=== PATIENT | male | born 1990 | race Asian ===

== ENCOUNTER → 2021-12-31 | Outpatient (CLI) | payer OTHER | END | disposition home or self-care (01) | LOC: RADMN 16:20 | PROVIDERS: ATTEND Internal Medicine | DX: Z09 Encounter for follow-up examination after completed treatment for conditions other than malignant neoplasm (principal); Z86.73 Personal history of transient ischemic attack (TIA), and cerebral infarction without residual deficits | CPT/HCPCS: 70551 ==

== ENCOUNTER 2022-03-05 21:09 | Inpatient (IN) | payer OTHER ==
[~2022-03-05] VITALS: Ht 167.6 cm; Wt 91.9 kg
[~2022-03-05 21:09] MED LIST: ACET-2247 PO; BISA10SU11 PR; CARV6 PO; CLON1PAT14 TD; CLON1PAT14 TP; DIVA500T53 PO; FAMO20 PO; HYDR50TA36 PO; LISI-894 PO; METO50 PO; QUET100T PO; QUET25TA PO
[2022-03-06 00:56] LABS: ANION GAP 5 mmol/L (8-16); CALCIUM, TOTAL 9.6 mg/dL (8.8-10.5); CARBON DIOXIDE 30 mmol/L (22-29); CHLORIDE 103 mmol/L (98-107); CREATININE 1.07 mg/dL (0.60-1.30); GLUCOSE,RANDOM 96 mg/dL (70-110); SODIUM SERUM 138 mmol/L (136-145); UREA NITROGEN, BLOOD 19 mg/dL (7-18)
[2022-03-06 01:00] LABS: GLOMERULAR FILTR. RATE CALC > 60 mL/min (>60)
[2022-03-06 01:02] LABS: ALANINE AMINOTRANSFERASE 65 U/L (12-78); ALBUMIN 3.8 g/dL (3.4-5.0); ALKALINE PHOSPHATASE 66 U/L (46-116); ASPARTATE AMINOTRANSFERASE 19 U/L (15-37); BILIRUBIN,TOTAL 0.3 mg/dL (0.1-1.0); TOTAL PROTEIN, SERUM 8.2 g/dL (6.4-8.2)
[2022-03-06 01:14] LABS: BASOPHILS % (AUTO) 0.6 % (0.0-2.0); EOSINOPHILS % (AUTO) 1.1 % (1.0-6.0); HEMATOCRIT 42.3 % (41-53); HEMOGLOBIN 13.9 g/dL (13.5-17.5); LYMPHOCYTES % (AUTO) 27.1 % (22.0-44.0); MEAN CORPUSCULAR HEMOGLOBIN 28.8 pg (26.0-34.0); MEAN CORPUSCULAR HGB CONC 32.8 G/dL (31.0-37.0); MEAN CORPUSCULAR VOLUME 88 fL (80-100); MONOCYTES # (AUTO) 0.7 K/uL (0.1-1.0); MONOCYTES % (AUTO) 9.5 % (2.0-9.0); NEUTROPHILS # (AUTO) 4.5 K/uL (1.8-7.7); NEUTROPHILS % (AUTO) 61.7 % (40.0-70.0); PLATELET COUNT (AUTO) 275 K/uL (150-450); RED BLOOD CELL COUNT(AUTO) 4.82 MIL/uL (4.50-5.90); RED CELL DISTRIBUTION WIDTH 15.6 % (11.5-14.5)
[2022-03-06 06:47] LABS: COVID AG,FIA SOURCE NASOPHARYNGEAL
[2022-03-06] MEDS ORDERED: ACETAMINOPHEN 500 MG TABLET PO PRN (07:00)
[2022-03-06] MEDS ORDERED: LORazepam 1 MG TABLET PO PRN (07:00)
[2022-03-06] MEDS ORDERED: CARVEDILOL 6.25 MG TABLET PO ONE (09:00)
[2022-03-06] MEDS ORDERED: FAMOTIDINE 20 MG TABLET PO ONE (09:00)
[2022-03-06] MEDS ORDERED: DIVALPROEX SODIUM 500 MG ER TABLET PO ONE (09:00)
[2022-03-06] MEDS ORDERED: HydrALAZINE HCL 25 MG TABLET PO ONE (09:00)
[2022-03-06] MEDS ORDERED: QUEtiapine FUMARATE 25 MG TABLET PO ONE (09:00)
[2022-03-06] MEDS ORDERED: LORazepam 2 MG/ML VIAL IM ONE ×2 (17:45)
[2022-03-07] MEDS ORDERED: ONDANSETRON HCL 4 MG/2 ML VIAL IVP PRN (16:45)
[2022-03-07] MEDS ORDERED: MORPHINE SULFATE 2 MG/ML SYRINGE IVP PRN (16:45)
[2022-03-07] MEDS ORDERED: BISACODYL 10 MG RECTAL RECTAL SUPPOSITORY PR PRN (16:45)
[2022-03-07 17:36] LABS: AMPHET/METH SCREEN,URINE NEGATIVE (NEGATIVE); BARBITURATE SCREEN, URINE NEGATIVE (NEGATIVE); BENZODIAZEPINES SCREEN,URINE NEGATIVE (NEGATIVE); CANNABINOID SCREEN,URINE NEGATIVE (NEGATIVE); COCAINE SCREEN,URINE NEGATIVE (NEGATIVE); METHADONE SCREEN, URINE NEGATIVE (NEGATIVE); OPIATE SCREEN,URINE NEGATIVE (NEGATIVE); PHENCYCLIDINE SCREEN,URINE NEGATIVE (NEGATIVE)
[2022-03-07] MEDS ORDERED: LORazepam 2 MG/ML VIAL IM ONE (18:30)
[2022-03-07] MEDS ORDERED: HALOPERIDOL LACTATE 5 MG/ML VIAL IM ONE (18:30)
[2022-03-07] MEDS ORDERED: DiphenhydrAMINE HCL 50 MG/ML VIAL IM ONE (18:30)
[2022-03-07 20:00] VITALS: BP 130/87
[2022-03-07] MEDS: FAMOTIDINE 20 MG TABLET PO SCH (21:11)
[2022-03-07] MEDS: DIVALPROEX SODIUM 500 MG ER TABLET PO SCH (21:11)
[2022-03-07] MEDS: QUEtiapine FUMARATE 100 MG TABLET PO SCH (21:12)
[2022-03-07] MEDS: QUEtiapine FUMARATE 25 MG TABLET PO SCH (21:12)
[2022-03-07] MEDS: HydrALAZINE HCL 50 MG TABLET PO SCH (21:12)
[2022-03-07] MEDS: HEPARIN SODIUM,PORCINE 5,000 UNITS/ML VIAL SQ SCH (21:12)
[2022-03-07] MEDS: DOCUSATE SODIUM 100 MG CAPSULE PO SCH (21:12)
[2022-03-07] MEDS: CARVEDILOL 6.25 MG TABLET PO SCH (21:12)
[2022-03-08 04:00] VITALS: BP 113/72
[2022-03-08 07:55] VITALS: BP 126/87
[2022-03-08] MEDS: PANTOPRAZOLE SODIUM 40 MG DR TABLET PO SCH (08:49)
[2022-03-08] MEDS: DIVALPROEX SODIUM 500 MG ER TABLET PO SCH ×3 (08:49→20:53)
[2022-03-08] MEDS: QUEtiapine FUMARATE 25 MG TABLET PO SCH ×3 (08:49→20:53)
[2022-03-08] MEDS: LISINOPRIL 20 MG TABLET PO SCH (08:49)
[2022-03-08] MEDS: FAMOTIDINE 20 MG TABLET PO SCH ×2 (08:50→20:53)
[2022-03-08] MEDS: HEPARIN SODIUM,PORCINE 5,000 UNITS/ML VIAL SQ SCH ×2 (08:50→16:15)
[2022-03-08] MEDS: QUEtiapine FUMARATE 100 MG TABLET PO SCH ×2 (08:50→20:54)
[2022-03-08] MEDS: HydrALAZINE HCL 50 MG TABLET PO SCH ×3 (08:50→20:53)
[2022-03-08] MEDS: DOCUSATE SODIUM 100 MG CAPSULE PO SCH ×2 (08:50→20:53)
[2022-03-08] MEDS: CARVEDILOL 6.25 MG TABLET PO SCH ×2 (08:50→20:53)
[2022-03-08 20:09] VITALS: BP 129/88
[2022-03-09] MEDS: HEPARIN SODIUM,PORCINE 5,000 UNITS/ML VIAL SQ SCH ×4 (01:21→23:26)
[2022-03-09 05:15] VITALS: BP 131/76
[2022-03-09 08:46] VITALS: BP 150/103
[2022-03-09] MEDS: FAMOTIDINE 20 MG TABLET PO SCH ×2 (09:08→20:19)
[2022-03-09] MEDS: LISINOPRIL 20 MG TABLET PO SCH (09:08)
[2022-03-09] MEDS: PANTOPRAZOLE SODIUM 40 MG DR TABLET PO SCH (09:08)
[2022-03-09] MEDS: HydrALAZINE HCL 50 MG TABLET PO SCH ×3 (09:08→20:19)
[2022-03-09] MEDS: DIVALPROEX SODIUM 500 MG ER TABLET PO SCH ×3 (09:08→20:19)
[2022-03-09] MEDS: QUEtiapine FUMARATE 25 MG TABLET PO SCH ×3 (09:08→20:19)
[2022-03-09] MEDS: QUEtiapine FUMARATE 100 MG TABLET PO SCH ×2 (09:08→20:19)
[2022-03-09] MEDS: CARVEDILOL 6.25 MG TABLET PO SCH ×2 (09:09→20:19)
[2022-03-09] MEDS: DOCUSATE SODIUM 100 MG CAPSULE PO SCH ×2 (09:09→20:19)
[2022-03-09 11:00] VITALS: BP 126/73
[2022-03-09 15:29] VITALS: BP 107/67
[2022-03-09 19:01] VITALS: BP 113/66
[2022-03-10 04:45] VITALS: BP 137/81
[2022-03-10 08:00] VITALS: BP 128/78
[2022-03-10] MEDS: HydrALAZINE HCL 50 MG TABLET PO SCH ×3 (08:54→20:04)
[2022-03-10] MEDS: HEPARIN SODIUM,PORCINE 5,000 UNITS/ML VIAL SQ SCH ×2 (08:54→16:40)
[2022-03-10] MEDS: DOCUSATE SODIUM 100 MG CAPSULE PO SCH ×2 (08:55→20:04)
[2022-03-10] MEDS: DIVALPROEX SODIUM 500 MG ER TABLET PO SCH ×3 (08:55→20:04)
[2022-03-10] MEDS: PANTOPRAZOLE SODIUM 40 MG DR TABLET PO SCH (08:55)
[2022-03-10] MEDS: CARVEDILOL 6.25 MG TABLET PO SCH ×2 (08:55→20:04)
[2022-03-10] MEDS: FAMOTIDINE 20 MG TABLET PO SCH ×2 (08:55→20:04)
[2022-03-10] MEDS: LISINOPRIL 20 MG TABLET PO SCH (08:57)
[2022-03-10] MEDS: QUEtiapine FUMARATE 25 MG TABLET PO SCH ×3 (08:58→20:04)
[2022-03-10] MEDS: QUEtiapine FUMARATE 100 MG TABLET PO SCH ×2 (08:59→20:04)
[2022-03-10 12:02] VITALS: BP 125/75
[2022-03-10 16:30] VITALS: BP 121/74
[2022-03-10 20:06] VITALS: BP 110/61
[2022-03-11 03:06] VITALS: BP 121/72
[2022-03-11 08:05] VITALS: BP 119/82
[2022-03-11] MEDS: CARVEDILOL 6.25 MG TABLET PO SCH ×2 (08:50→19:58)
[2022-03-11] MEDS: LISINOPRIL 20 MG TABLET PO SCH (08:50)
[2022-03-11] MEDS: QUEtiapine FUMARATE 100 MG TABLET PO SCH ×2 (08:51→19:58)
[2022-03-11] MEDS: HEPARIN SODIUM,PORCINE 5,000 UNITS/ML VIAL SQ SCH ×4 (08:51→23:12)
[2022-03-11] MEDS: QUEtiapine FUMARATE 25 MG TABLET PO SCH ×3 (08:52→19:57)
[2022-03-11] MEDS: FAMOTIDINE 20 MG TABLET PO SCH ×2 (08:52→19:58)
[2022-03-11] MEDS: DOCUSATE SODIUM 100 MG CAPSULE PO SCH ×2 (08:52→19:58)
[2022-03-11] MEDS: DIVALPROEX SODIUM 500 MG ER TABLET PO SCH ×3 (08:52→19:58)
[2022-03-11] MEDS: PANTOPRAZOLE SODIUM 40 MG DR TABLET PO SCH (08:52)
[2022-03-11] MEDS: HydrALAZINE HCL 50 MG TABLET PO SCH ×3 (09:00→19:58)
[2022-03-11 15:14] VITALS: BP 115/78
[2022-03-11] MEDS: ACETAMINOPHEN 325 MG TABLET PO PRN (20:00)
[2022-03-11 20:17] VITALS: BP 116/77
[2022-03-12 04:38] VITALS: BP 113/74
[2022-03-12 08:00] VITALS: BP 132/81
[2022-03-12] MEDS: DIVALPROEX SODIUM 500 MG ER TABLET PO SCH ×3 (08:32→20:19)
[2022-03-12] MEDS: QUEtiapine FUMARATE 25 MG TABLET PO SCH ×3 (08:32→20:19)
[2022-03-12] MEDS: PANTOPRAZOLE SODIUM 40 MG DR TABLET PO SCH (08:33)
[2022-03-12] MEDS: LISINOPRIL 20 MG TABLET PO SCH (08:33)
[2022-03-12] MEDS: FAMOTIDINE 20 MG TABLET PO SCH ×2 (08:33→20:20)
[2022-03-12] MEDS: HydrALAZINE HCL 50 MG TABLET PO SCH ×3 (08:33→20:20)
[2022-03-12] MEDS: QUEtiapine FUMARATE 100 MG TABLET PO SCH ×2 (08:33→20:20)
[2022-03-12] MEDS: HEPARIN SODIUM,PORCINE 5,000 UNITS/ML VIAL SQ SCH ×3 (08:33→23:29)
[2022-03-12] MEDS: DOCUSATE SODIUM 100 MG CAPSULE PO SCH ×2 (08:33→20:19)
[2022-03-12] MEDS: CARVEDILOL 6.25 MG TABLET PO SCH ×2 (08:33→20:20)
[2022-03-12 15:28] VITALS: BP 109/85
[2022-03-12 19:52] VITALS: BP 106/68
[2022-03-12] MEDS: ZOLPIDEM TARTRATE 5 MG TABLET PO PRN (20:20)
[2022-03-13 06:25] VITALS: BP 118/63
[2022-03-13 08:10] VITALS: BP 120/82
[2022-03-13] MEDS: QUEtiapine FUMARATE 100 MG TABLET PO SCH ×2 (08:43→20:11)
[2022-03-13] MEDS: HydrALAZINE HCL 50 MG TABLET PO SCH ×3 (08:43→20:11)
[2022-03-13] MEDS: DIVALPROEX SODIUM 500 MG ER TABLET PO SCH ×3 (08:43→20:11)
[2022-03-13] MEDS: FAMOTIDINE 20 MG TABLET PO SCH ×2 (08:43→20:11)
[2022-03-13] MEDS: DOCUSATE SODIUM 100 MG CAPSULE PO SCH ×2 (08:43→20:10)
[2022-03-13] MEDS: LISINOPRIL 20 MG TABLET PO SCH (08:43)
[2022-03-13] MEDS: QUEtiapine FUMARATE 25 MG TABLET PO SCH ×3 (08:43→20:11)
[2022-03-13] MEDS: PANTOPRAZOLE SODIUM 40 MG DR TABLET PO SCH (08:43)
[2022-03-13] MEDS: CARVEDILOL 6.25 MG TABLET PO SCH ×2 (08:43→20:11)
[2022-03-13] MEDS: HEPARIN SODIUM,PORCINE 5,000 UNITS/ML VIAL SQ SCH ×3 (08:44→23:14)
[2022-03-13 19:30] VITALS: BP 122/77
[2022-03-13] MEDS: ZOLPIDEM TARTRATE 5 MG TABLET PO PRN (20:11)
[2022-03-14 04:10] VITALS: BP 142/86
[2022-03-14 09:14] VITALS: BP 129/69
[2022-03-14] MEDS: CloNIDine 0.3 MG/24 HOUR PATCH TD SCH (09:37)
[2022-03-14] MEDS: FAMOTIDINE 20 MG TABLET PO SCH ×2 (09:37→21:02)
[2022-03-14] MEDS: DIVALPROEX SODIUM 500 MG ER TABLET PO SCH ×3 (09:37→21:02)
[2022-03-14] MEDS: QUEtiapine FUMARATE 100 MG TABLET PO SCH ×2 (09:38→21:02)
[2022-03-14] MEDS: PANTOPRAZOLE SODIUM 40 MG DR TABLET PO SCH (09:38)
[2022-03-14] MEDS: HEPARIN SODIUM,PORCINE 5,000 UNITS/ML VIAL SQ SCH ×3 (09:38→23:26)
[2022-03-14] MEDS: DOCUSATE SODIUM 100 MG CAPSULE PO SCH ×2 (09:38→21:02)
[2022-03-14] MEDS: LISINOPRIL 20 MG TABLET PO SCH (09:38)
[2022-03-14] MEDS: HydrALAZINE HCL 50 MG TABLET PO SCH ×3 (09:38→21:02)
[2022-03-14] MEDS: CARVEDILOL 6.25 MG TABLET PO SCH ×2 (09:38→21:03)
[2022-03-14] MEDS: QUEtiapine FUMARATE 25 MG TABLET PO SCH ×3 (09:38→21:03)
[2022-03-14 16:06] VITALS: BP 113/76
[2022-03-14 19:22] VITALS: BP 108/64
[2022-03-15 04:24] VITALS: BP 102/52
[2022-03-15 08:35] VITALS: BP 110/56
[2022-03-15] MEDS: DIVALPROEX SODIUM 500 MG ER TABLET PO SCH ×3 (09:10→20:02)
[2022-03-15] MEDS: FAMOTIDINE 20 MG TABLET PO SCH ×2 (09:10→20:00)
[2022-03-15] MEDS: LISINOPRIL 20 MG TABLET PO SCH (09:10)
[2022-03-15] MEDS: HydrALAZINE HCL 50 MG TABLET PO SCH ×3 (09:11→20:02)
[2022-03-15] MEDS: DOCUSATE SODIUM 100 MG CAPSULE PO SCH ×2 (09:11→20:00)
[2022-03-15] MEDS: QUEtiapine FUMARATE 25 MG TABLET PO SCH ×3 (09:11→20:02)
[2022-03-15] MEDS: CARVEDILOL 6.25 MG TABLET PO SCH ×2 (09:11→20:01)
[2022-03-15] MEDS: QUEtiapine FUMARATE 100 MG TABLET PO SCH ×2 (09:18→20:01)
[2022-03-15] MEDS: PANTOPRAZOLE SODIUM 40 MG DR TABLET PO SCH (09:18)
[2022-03-15] MEDS: HEPARIN SODIUM,PORCINE 5,000 UNITS/ML VIAL SQ SCH ×2 (09:22→16:57)
[2022-03-15 15:25] VITALS: BP 124/64
[2022-03-15 19:33] VITALS: BP 106/55
[2022-03-16 03:20] VITALS: BP 123/65
[2022-03-16 07:24] VITALS: BP 125/67
[2022-03-16] MEDS: HEPARIN SODIUM,PORCINE 5,000 UNITS/ML VIAL SQ SCH ×3 (08:37→16:28)
[2022-03-16] MEDS: HydrALAZINE HCL 50 MG TABLET PO SCH ×3 (08:38→20:50)
[2022-03-16] MEDS: DOCUSATE SODIUM 100 MG CAPSULE PO SCH ×2 (08:38→20:52)
[2022-03-16] MEDS: QUEtiapine FUMARATE 25 MG TABLET PO SCH ×3 (08:38→20:52)
[2022-03-16] MEDS: LISINOPRIL 20 MG TABLET PO SCH (08:38)
[2022-03-16] MEDS: DIVALPROEX SODIUM 500 MG ER TABLET PO SCH ×3 (08:38→20:52)
[2022-03-16] MEDS: PANTOPRAZOLE SODIUM 40 MG DR TABLET PO SCH (08:38)
[2022-03-16] MEDS: QUEtiapine FUMARATE 100 MG TABLET PO SCH ×2 (08:38→20:52)
[2022-03-16] MEDS: CARVEDILOL 6.25 MG TABLET PO SCH ×3 (08:38→21:00)
[2022-03-16] MEDS: FAMOTIDINE 20 MG TABLET PO SCH ×2 (08:38→20:52)
[2022-03-16 20:09] VITALS: BP 102/51
[2022-03-16 20:30] VITALS: BP 98/56
[2022-03-17] MEDS: HEPARIN SODIUM,PORCINE 5,000 UNITS/ML VIAL SQ SCH ×4 (00:42→23:53)
[2022-03-17] MEDS: ZOLPIDEM TARTRATE 5 MG TABLET PO PRN (00:45)
[2022-03-17 00:47] VITALS: BP 102/54
[2022-03-17 08:00] VITALS: BP 98/58
[2022-03-17] MEDS: HydrALAZINE HCL 50 MG TABLET PO SCH ×3 (09:15→21:50)
[2022-03-17] MEDS: QUEtiapine FUMARATE 100 MG TABLET PO SCH ×2 (09:15→21:50)
[2022-03-17] MEDS: DOCUSATE SODIUM 100 MG CAPSULE PO SCH ×2 (09:15→21:49)
[2022-03-17] MEDS: PANTOPRAZOLE SODIUM 40 MG DR TABLET PO SCH (09:15)
[2022-03-17] MEDS: QUEtiapine FUMARATE 25 MG TABLET PO SCH ×3 (09:15→21:50)
[2022-03-17] MEDS: LISINOPRIL 20 MG TABLET PO SCH (09:15)
[2022-03-17] MEDS: FAMOTIDINE 20 MG TABLET PO SCH ×2 (09:15→21:50)
[2022-03-17] MEDS: DIVALPROEX SODIUM 500 MG ER TABLET PO SCH ×3 (09:15→21:50)
[2022-03-17] MEDS: CARVEDILOL 6.25 MG TABLET PO SCH ×2 (10:08→21:50)
[2022-03-17 12:00] VITALS: BP 109/59
[2022-03-17 16:00] VITALS: BP 134/81
[2022-03-17 21:22] VITALS: BP 105/58
[2022-03-18] MEDS: ZOLPIDEM TARTRATE 5 MG TABLET PO PRN ×2 (00:40→21:20)
[2022-03-18 04:12] VITALS: BP 100/64
[2022-03-18] MEDS: LISINOPRIL 20 MG TABLET PO SCH (08:07)
[2022-03-18] MEDS: PANTOPRAZOLE SODIUM 40 MG DR TABLET PO SCH (08:07)
[2022-03-18] MEDS: FAMOTIDINE 20 MG TABLET PO SCH ×2 (08:07→21:19)
[2022-03-18] MEDS: QUEtiapine FUMARATE 100 MG TABLET PO SCH ×2 (08:07→21:19)
[2022-03-18] MEDS: CARVEDILOL 6.25 MG TABLET PO SCH ×2 (08:07→21:19)
[2022-03-18] MEDS: DIVALPROEX SODIUM 500 MG ER TABLET PO SCH ×3 (08:07→21:19)
[2022-03-18] MEDS: DOCUSATE SODIUM 100 MG CAPSULE PO SCH ×2 (08:07→21:19)
[2022-03-18] MEDS: HEPARIN SODIUM,PORCINE 5,000 UNITS/ML VIAL SQ SCH ×2 (08:07→15:28)
[2022-03-18] MEDS: QUEtiapine FUMARATE 25 MG TABLET PO SCH ×3 (08:07→21:19)
[2022-03-18] MEDS: HydrALAZINE HCL 50 MG TABLET PO SCH ×3 (08:07→21:20)
[2022-03-18 08:08] VITALS: BP 137/76
[2022-03-18 15:28] VITALS: BP 108/76
[2022-03-18 21:26] VITALS: BP 100/57
[2022-03-19 04:10] VITALS: BP 125/70
[2022-03-19 08:29] VITALS: BP 109/64
[2022-03-19] MEDS: QUEtiapine FUMARATE 25 MG TABLET PO SCH ×3 (08:54→20:21)
[2022-03-19] MEDS: DIVALPROEX SODIUM 500 MG ER TABLET PO SCH ×3 (08:54→20:21)
[2022-03-19] MEDS: HEPARIN SODIUM,PORCINE 5,000 UNITS/ML VIAL SQ SCH ×4 (08:54→23:39)
[2022-03-19] MEDS: QUEtiapine FUMARATE 100 MG TABLET PO SCH ×2 (08:55→20:21)
[2022-03-19] MEDS: PANTOPRAZOLE SODIUM 40 MG DR TABLET PO SCH (08:56)
[2022-03-19] MEDS: DOCUSATE SODIUM 100 MG CAPSULE PO SCH ×2 (08:56→20:21)
[2022-03-19] MEDS: FAMOTIDINE 20 MG TABLET PO SCH ×2 (08:56→20:21)
[2022-03-19] MEDS: CARVEDILOL 6.25 MG TABLET PO SCH ×2 (08:58→20:21)
[2022-03-19] MEDS: HydrALAZINE HCL 50 MG TABLET PO SCH ×3 (08:58→20:21)
[2022-03-19] MEDS: LISINOPRIL 20 MG TABLET PO SCH (08:58)
[2022-03-19 15:37] VITALS: BP 116/65
[2022-03-19 19:30] VITALS: BP 110/64
[2022-03-19] MEDS: ZOLPIDEM TARTRATE 5 MG TABLET PO PRN (23:39)
[2022-03-20 05:02] VITALS: BP 118/71
[2022-03-20 07:33] VITALS: BP 122/72
[2022-03-20] MEDS: QUEtiapine FUMARATE 25 MG TABLET PO SCH ×3 (08:25→21:06)
[2022-03-20] MEDS: DOCUSATE SODIUM 100 MG CAPSULE PO SCH ×2 (08:25→21:06)
[2022-03-20] MEDS: CARVEDILOL 6.25 MG TABLET PO SCH ×2 (08:25→21:06)
[2022-03-20] MEDS: HydrALAZINE HCL 50 MG TABLET PO SCH ×3 (08:25→21:05)
[2022-03-20] MEDS: PANTOPRAZOLE SODIUM 40 MG DR TABLET PO SCH (08:25)
[2022-03-20] MEDS: FAMOTIDINE 20 MG TABLET PO SCH ×2 (08:25→21:06)
[2022-03-20] MEDS: QUEtiapine FUMARATE 100 MG TABLET PO SCH ×2 (08:25→21:06)
[2022-03-20] MEDS: DIVALPROEX SODIUM 500 MG ER TABLET PO SCH ×3 (08:25→21:06)
[2022-03-20] MEDS: LISINOPRIL 20 MG TABLET PO SCH (08:25)
[2022-03-20] MEDS: HEPARIN SODIUM,PORCINE 5,000 UNITS/ML VIAL SQ SCH ×3 (08:25→23:18)
[2022-03-20 15:02] VITALS: BP 126/74
[2022-03-20 19:40] VITALS: BP 125/85
[2022-03-20] MEDS: ZOLPIDEM TARTRATE 5 MG TABLET PO PRN (23:18)
[2022-03-21 03:44] VITALS: BP 108/67
[2022-03-21 07:26] VITALS: BP 112/61
[2022-03-21] MEDS: DIVALPROEX SODIUM 500 MG ER TABLET PO SCH ×3 (08:47→20:55)
[2022-03-21] MEDS: DOCUSATE SODIUM 100 MG CAPSULE PO SCH ×2 (08:47→20:55)
[2022-03-21] MEDS: FAMOTIDINE 20 MG TABLET PO SCH ×2 (08:47→20:55)
[2022-03-21] MEDS: QUEtiapine FUMARATE 25 MG TABLET PO SCH ×3 (08:48→20:55)
[2022-03-21] MEDS: HEPARIN SODIUM,PORCINE 5,000 UNITS/ML VIAL SQ SCH ×3 (08:48→22:52)
[2022-03-21] MEDS: PANTOPRAZOLE SODIUM 40 MG DR TABLET PO SCH (08:48)
[2022-03-21] MEDS: CARVEDILOL 6.25 MG TABLET PO SCH ×2 (08:48→22:51)
[2022-03-21] MEDS: QUEtiapine FUMARATE 100 MG TABLET PO SCH ×2 (08:48→20:55)
[2022-03-21] MEDS: LISINOPRIL 20 MG TABLET PO SCH ×2 (08:48→09:00)
[2022-03-21] MEDS: CloNIDine 0.3 MG/24 HOUR PATCH TD SCH (08:49)
[2022-03-21] MEDS: HydrALAZINE HCL 50 MG TABLET PO SCH ×3 (09:00→22:51)
[2022-03-21 15:31] VITALS: BP 113/73
[2022-03-21 20:32] VITALS: BP 106/56
[2022-03-21 22:50] VITALS: BP 122/62
[2022-03-21] MEDS: ZOLPIDEM TARTRATE 5 MG TABLET PO PRN (22:51)
[2022-03-22 05:20] VITALS: BP 124/73
[2022-03-22] MEDS: HydrALAZINE HCL 50 MG TABLET PO SCH ×3 (08:04→19:53)
[2022-03-22] MEDS: DOCUSATE SODIUM 100 MG CAPSULE PO SCH ×2 (08:04→19:53)
[2022-03-22] MEDS: PANTOPRAZOLE SODIUM 40 MG DR TABLET PO SCH (08:04)
[2022-03-22] MEDS: FAMOTIDINE 20 MG TABLET PO SCH ×2 (08:04→19:53)
[2022-03-22] MEDS: QUEtiapine FUMARATE 100 MG TABLET PO SCH ×2 (08:04→19:53)
[2022-03-22] MEDS: CARVEDILOL 6.25 MG TABLET PO SCH ×2 (08:04→19:53)
[2022-03-22] MEDS: DIVALPROEX SODIUM 500 MG ER TABLET PO SCH ×3 (08:04→19:52)
[2022-03-22 08:05] VITALS: BP 136/85
[2022-03-22] MEDS: HEPARIN SODIUM,PORCINE 5,000 UNITS/ML VIAL SQ SCH ×3 (08:05→23:14)
[2022-03-22] MEDS: QUEtiapine FUMARATE 25 MG TABLET PO SCH ×3 (08:05→19:52)
[2022-03-22] MEDS: LISINOPRIL 20 MG TABLET PO SCH (08:05)
[2022-03-22 19:30] VITALS: BP 119/58
[2022-03-22] MEDS: ZOLPIDEM TARTRATE 5 MG TABLET PO PRN (23:14)
[2022-03-23 04:14] VITALS: BP 107/60
[2022-03-23] MEDS: DIVALPROEX SODIUM 500 MG ER TABLET PO SCH ×3 (07:53→20:22)
[2022-03-23] MEDS: LISINOPRIL 20 MG TABLET PO SCH (07:53)
[2022-03-23] MEDS: QUEtiapine FUMARATE 100 MG TABLET PO SCH ×2 (07:53→20:23)
[2022-03-23] MEDS: QUEtiapine FUMARATE 25 MG TABLET PO SCH ×3 (07:53→20:23)
[2022-03-23] MEDS: DOCUSATE SODIUM 100 MG CAPSULE PO SCH ×2 (08:01→20:22)
[2022-03-23] MEDS: CARVEDILOL 6.25 MG TABLET PO SCH ×2 (08:01→20:22)
[2022-03-23] MEDS: FAMOTIDINE 20 MG TABLET PO SCH ×2 (08:01→20:23)
[2022-03-23] MEDS: HEPARIN SODIUM,PORCINE 5,000 UNITS/ML VIAL SQ SCH ×3 (08:02→23:17)
[2022-03-23 08:11] VITALS: BP 122/88
[2022-03-23] MEDS: PANTOPRAZOLE SODIUM 40 MG DR TABLET PO SCH (09:00)
[2022-03-23 11:00] VITALS: BP 120/70
[2022-03-23] MEDS: HydrALAZINE HCL 50 MG TABLET PO SCH ×3 (11:00→20:29)
[2022-03-23 12:02] VITALS: BP 102/64
[2022-03-23 16:07] VITALS: BP 111/68
[2022-03-23 20:11] VITALS: BP 104/57
[2022-03-23] MEDS: ZOLPIDEM TARTRATE 5 MG TABLET PO PRN (23:17)
[2022-03-24 03:05] VITALS: BP 113/78
[2022-03-24] MEDS: HEPARIN SODIUM,PORCINE 5,000 UNITS/ML VIAL SQ SCH ×3 (08:00→23:13)
[2022-03-24 08:03] VITALS: BP 132/78
[2022-03-24] MEDS: FAMOTIDINE 20 MG TABLET PO SCH ×2 (08:50→20:14)
[2022-03-24] MEDS: PANTOPRAZOLE SODIUM 40 MG DR TABLET PO SCH (08:50)
[2022-03-24] MEDS: CARVEDILOL 6.25 MG TABLET PO SCH ×2 (08:50→20:14)
[2022-03-24] MEDS: QUEtiapine FUMARATE 100 MG TABLET PO SCH ×2 (08:50→20:14)
[2022-03-24] MEDS: QUEtiapine FUMARATE 25 MG TABLET PO SCH ×3 (08:50→20:14)
[2022-03-24] MEDS: LISINOPRIL 20 MG TABLET PO SCH (08:50)
[2022-03-24] MEDS: DIVALPROEX SODIUM 500 MG ER TABLET PO SCH ×3 (08:50→20:14)
[2022-03-24] MEDS: HydrALAZINE HCL 50 MG TABLET PO SCH ×3 (08:50→20:14)
[2022-03-24] MEDS: DOCUSATE SODIUM 100 MG CAPSULE PO SCH ×2 (08:50→20:14)
[2022-03-24 16:00] VITALS: BP 133/81
[2022-03-24 20:32] VITALS: BP 114/75
[2022-03-24] MEDS: ZOLPIDEM TARTRATE 5 MG TABLET PO PRN (23:13)
[2022-03-25 04:42] VITALS: BP 149/76
[2022-03-25] MEDS: QUEtiapine FUMARATE 100 MG TABLET PO SCH ×2 (07:55→20:47)
[2022-03-25] MEDS: PANTOPRAZOLE SODIUM 40 MG DR TABLET PO SCH (07:55)
[2022-03-25] MEDS: DIVALPROEX SODIUM 500 MG ER TABLET PO SCH ×3 (07:56→20:43)
[2022-03-25] MEDS: HydrALAZINE HCL 50 MG TABLET PO SCH ×3 (07:56→20:43)
[2022-03-25] MEDS: QUEtiapine FUMARATE 25 MG TABLET PO SCH ×3 (07:56→20:43)
[2022-03-25] MEDS: DOCUSATE SODIUM 100 MG CAPSULE PO SCH ×2 (07:56→20:42)
[2022-03-25] MEDS: FAMOTIDINE 20 MG TABLET PO SCH ×2 (07:56→20:43)
[2022-03-25] MEDS: HEPARIN SODIUM,PORCINE 5,000 UNITS/ML VIAL SQ SCH ×3 (07:56→23:40)
[2022-03-25] MEDS: LISINOPRIL 20 MG TABLET PO SCH (07:56)
[2022-03-25] MEDS: CARVEDILOL 6.25 MG TABLET PO SCH ×2 (07:56→20:43)
[2022-03-25 08:14] VITALS: BP 124/93
[2022-03-25 15:27] VITALS: BP 116/70
[2022-03-25 20:35] VITALS: BP 119/58
[2022-03-25 22:02] LABS: COVID AG,FIA SOURCE NASAL SWAB
[2022-03-26 04:39] VITALS: BP 130/74
[2022-03-26 07:30] VITALS: BP 128/71
[2022-03-26] MEDS: QUEtiapine FUMARATE 100 MG TABLET PO SCH ×2 (08:53→21:32)
[2022-03-26] MEDS: HEPARIN SODIUM,PORCINE 5,000 UNITS/ML VIAL SQ SCH ×2 (08:53→17:13)
[2022-03-26] MEDS: DIVALPROEX SODIUM 500 MG ER TABLET PO SCH ×3 (08:53→21:31)
[2022-03-26] MEDS: QUEtiapine FUMARATE 25 MG TABLET PO SCH ×3 (08:53→21:32)
[2022-03-26] MEDS: HydrALAZINE HCL 50 MG TABLET PO SCH ×3 (08:53→21:31)
[2022-03-26] MEDS: PANTOPRAZOLE SODIUM 40 MG DR TABLET PO SCH (08:53)
[2022-03-26] MEDS: CARVEDILOL 6.25 MG TABLET PO SCH ×2 (08:53→21:31)
[2022-03-26] MEDS: LISINOPRIL 20 MG TABLET PO SCH (08:54)
[2022-03-26] MEDS: DOCUSATE SODIUM 100 MG CAPSULE PO SCH ×2 (08:54→21:31)
[2022-03-26] MEDS: FAMOTIDINE 20 MG TABLET PO SCH ×2 (08:54→21:31)
[2022-03-26 16:57] VITALS: BP 119/80
[2022-03-26 20:15] VITALS: BP 114/63
[2022-03-27 03:20] VITALS: BP 130/82
[2022-03-27] MEDS: LISINOPRIL 20 MG TABLET PO SCH (08:45)
[2022-03-27] MEDS: DIVALPROEX SODIUM 500 MG ER TABLET PO SCH ×3 (08:45→20:28)
[2022-03-27] MEDS: DOCUSATE SODIUM 100 MG CAPSULE PO SCH ×2 (08:45→20:29)
[2022-03-27] MEDS: PANTOPRAZOLE SODIUM 40 MG DR TABLET PO SCH (08:45)
[2022-03-27] MEDS: CARVEDILOL 6.25 MG TABLET PO SCH ×2 (08:45→20:28)
[2022-03-27] MEDS: FAMOTIDINE 20 MG TABLET PO SCH ×2 (08:45→20:29)
[2022-03-27] MEDS: HydrALAZINE HCL 50 MG TABLET PO SCH ×3 (08:45→20:28)
[2022-03-27] MEDS: QUEtiapine FUMARATE 100 MG TABLET PO SCH ×2 (08:45→20:29)
[2022-03-27] MEDS: HEPARIN SODIUM,PORCINE 5,000 UNITS/ML VIAL SQ SCH ×3 (08:46→17:38)
[2022-03-27] MEDS: QUEtiapine FUMARATE 25 MG TABLET PO SCH ×3 (08:47→20:28)
[2022-03-27 09:08] VITALS: BP 114/76
[2022-03-27 16:44] VITALS: BP 135/78
[2022-03-27 21:00] VITALS: BP 114/60
[2022-03-28 03:36] VITALS: BP 134/79
[2022-03-28] MEDS: ACETAMINOPHEN 325 MG TABLET PO PRN (03:50)
[2022-03-28] MEDS: CARVEDILOL 6.25 MG TABLET PO SCH ×2 (08:31→20:36)
[2022-03-28] MEDS: CloNIDine 0.3 MG/24 HOUR PATCH TD SCH (08:31)
[2022-03-28] MEDS: HydrALAZINE HCL 50 MG TABLET PO SCH ×3 (08:31→20:36)
[2022-03-28] MEDS: DIVALPROEX SODIUM 500 MG ER TABLET PO SCH ×3 (08:31→20:36)
[2022-03-28] MEDS: DOCUSATE SODIUM 100 MG CAPSULE PO SCH ×2 (08:31→20:36)
[2022-03-28] MEDS: PANTOPRAZOLE SODIUM 40 MG DR TABLET PO SCH (08:31)
[2022-03-28] MEDS: QUEtiapine FUMARATE 100 MG TABLET PO SCH ×2 (08:31→20:36)
[2022-03-28] MEDS: QUEtiapine FUMARATE 25 MG TABLET PO SCH ×3 (08:31→20:36)
[2022-03-28] MEDS: FAMOTIDINE 20 MG TABLET PO SCH ×2 (08:31→20:35)
[2022-03-28] MEDS: LISINOPRIL 20 MG TABLET PO SCH (08:31)
[2022-03-28] MEDS: HEPARIN SODIUM,PORCINE 5,000 UNITS/ML VIAL SQ SCH ×4 (08:32→23:50)
[2022-03-28 08:40] VITALS: BP 136/75
[2022-03-28 20:48] VITALS: BP 113/64
[2022-03-29 04:02] VITALS: BP 107/81
[2022-03-29] MEDS: HYDROCODONE/ACETAMINOPHEN 5-325 MG TABLET PO PRN ×2 (05:11→20:23)
[2022-03-29] MEDS: FAMOTIDINE 20 MG TABLET PO SCH ×2 (08:25→20:24)
[2022-03-29] MEDS: HydrALAZINE HCL 50 MG TABLET PO SCH ×3 (08:25→20:24)
[2022-03-29] MEDS: DOCUSATE SODIUM 100 MG CAPSULE PO SCH ×2 (08:25→20:23)
[2022-03-29] MEDS: QUEtiapine FUMARATE 100 MG TABLET PO SCH ×2 (08:25→20:23)
[2022-03-29] MEDS: QUEtiapine FUMARATE 25 MG TABLET PO SCH ×3 (08:25→20:23)
[2022-03-29] MEDS: HEPARIN SODIUM,PORCINE 5,000 UNITS/ML VIAL SQ SCH ×2 (08:25→16:10)
[2022-03-29] MEDS: LISINOPRIL 20 MG TABLET PO SCH (08:25)
[2022-03-29] MEDS: PANTOPRAZOLE SODIUM 40 MG DR TABLET PO SCH (08:26)
[2022-03-29] MEDS: CARVEDILOL 6.25 MG TABLET PO SCH ×2 (08:26→20:23)
[2022-03-29] MEDS: DIVALPROEX SODIUM 500 MG ER TABLET PO SCH ×3 (08:26→20:23)
[2022-03-29 16:15] VITALS: BP 112/51
[2022-03-29 20:28] VITALS: BP 14/66
[2022-03-30] MEDS ORDERED: LORazepam 2 MG/ML VIAL IM ONE (02:00)
[2022-03-30 05:00] VITALS: BP 128/83
[2022-03-30] MEDS: CARVEDILOL 6.25 MG TABLET PO SCH ×2 (08:25→20:55)
[2022-03-30] MEDS: DOCUSATE SODIUM 100 MG CAPSULE PO SCH ×2 (08:25→20:57)
[2022-03-30] MEDS: HEPARIN SODIUM,PORCINE 5,000 UNITS/ML VIAL SQ SCH ×4 (08:25→23:38)
[2022-03-30] MEDS: FAMOTIDINE 20 MG TABLET PO SCH ×2 (08:26→20:54)
[2022-03-30] MEDS: DIVALPROEX SODIUM 500 MG ER TABLET PO SCH ×3 (08:26→20:55)
[2022-03-30] MEDS: QUEtiapine FUMARATE 25 MG TABLET PO SCH ×3 (08:26→20:54)
[2022-03-30] MEDS: LISINOPRIL 20 MG TABLET PO SCH (08:26)
[2022-03-30] MEDS: HydrALAZINE HCL 50 MG TABLET PO SCH ×3 (08:26→20:55)
[2022-03-30] MEDS: QUEtiapine FUMARATE 100 MG TABLET PO SCH ×2 (08:27→23:31)
[2022-03-30] MEDS: PANTOPRAZOLE SODIUM 40 MG DR TABLET PO SCH (09:00)
[2022-03-30 09:03] VITALS: BP 130/70
[2022-03-30 15:48] VITALS: BP 128/79
[2022-03-30 20:01] VITALS: BP 131/72
[2022-03-30] MEDS: HYDROCODONE/ACETAMINOPHEN 5-325 MG TABLET PO PRN (23:32)
[2022-03-31 04:46] VITALS: BP 138/69
[2022-03-31 07:12] VITALS: BP 124/96
[2022-03-31] MEDS: HEPARIN SODIUM,PORCINE 5,000 UNITS/ML VIAL SQ SCH ×3 (09:16→23:05)
[2022-03-31] MEDS: PANTOPRAZOLE SODIUM 40 MG DR TABLET PO SCH (09:17)
[2022-03-31] MEDS: QUEtiapine FUMARATE 100 MG TABLET PO SCH ×2 (09:17→20:38)
[2022-03-31] MEDS: QUEtiapine FUMARATE 25 MG TABLET PO SCH ×3 (09:17→20:38)
[2022-03-31] MEDS: FAMOTIDINE 20 MG TABLET PO SCH ×2 (09:17→20:38)
[2022-03-31] MEDS: LISINOPRIL 20 MG TABLET PO SCH (09:18)
[2022-03-31] MEDS: DIVALPROEX SODIUM 500 MG ER TABLET PO SCH ×3 (09:18→20:38)
[2022-03-31] MEDS: DOCUSATE SODIUM 100 MG CAPSULE PO SCH ×2 (09:18→20:39)
[2022-03-31] MEDS: HydrALAZINE HCL 50 MG TABLET PO SCH ×3 (09:18→20:38)
[2022-03-31] MEDS: CARVEDILOL 6.25 MG TABLET PO SCH ×2 (09:18→20:38)
[2022-03-31 09:40] VITALS: BP 124/96
[2022-03-31 15:15] VITALS: BP 109/59
[2022-03-31 17:25] VITALS: BP 113/71
[2022-03-31 20:35] VITALS: BP 115/52
[2022-04-01 03:15] VITALS: BP 102/52
[2022-04-01 08:00] VITALS: BP 132/70
[2022-04-01] MEDS: DIVALPROEX SODIUM 500 MG ER TABLET PO SCH ×3 (08:35→20:57)
[2022-04-01] MEDS: HEPARIN SODIUM,PORCINE 5,000 UNITS/ML VIAL SQ SCH ×2 (08:35→17:12)
[2022-04-01] MEDS: PANTOPRAZOLE SODIUM 40 MG DR TABLET PO SCH (08:35)
[2022-04-01] MEDS: QUEtiapine FUMARATE 100 MG TABLET PO SCH ×2 (08:36→20:57)
[2022-04-01] MEDS: CARVEDILOL 6.25 MG TABLET PO SCH ×2 (08:36→20:57)
[2022-04-01] MEDS: FAMOTIDINE 20 MG TABLET PO SCH ×2 (08:36→20:57)
[2022-04-01] MEDS: QUEtiapine FUMARATE 25 MG TABLET PO SCH ×3 (08:36→20:57)
[2022-04-01] MEDS: HydrALAZINE HCL 50 MG TABLET PO SCH ×3 (08:36→20:57)
[2022-04-01] MEDS: DOCUSATE SODIUM 100 MG CAPSULE PO SCH ×3 (08:36→20:57)
[2022-04-01] MEDS: LISINOPRIL 20 MG TABLET PO SCH (08:36)
[2022-04-01 16:20] VITALS: BP 128/69
[2022-04-01 21:00] VITALS: BP 100/74
[2022-04-02 03:35] VITALS: BP 108/67
[2022-04-02 08:22] VITALS: BP 135/92
[2022-04-02] MEDS: CARVEDILOL 6.25 MG TABLET PO SCH ×2 (09:17→21:14)
[2022-04-02] MEDS: DIVALPROEX SODIUM 500 MG ER TABLET PO SCH ×3 (09:17→21:14)
[2022-04-02] MEDS: DOCUSATE SODIUM 100 MG CAPSULE PO SCH ×2 (09:17→21:13)
[2022-04-02] MEDS: FAMOTIDINE 20 MG TABLET PO SCH ×2 (09:17→21:14)
[2022-04-02] MEDS: LISINOPRIL 20 MG TABLET PO SCH (09:17)
[2022-04-02] MEDS: PANTOPRAZOLE SODIUM 40 MG DR TABLET PO SCH (09:17)
[2022-04-02] MEDS: HEPARIN SODIUM,PORCINE 5,000 UNITS/ML VIAL SQ SCH ×3 (09:17→16:38)
[2022-04-02] MEDS: QUEtiapine FUMARATE 100 MG TABLET PO SCH ×2 (09:18→21:15)
[2022-04-02] MEDS: QUEtiapine FUMARATE 25 MG TABLET PO SCH ×3 (09:18→21:15)
[2022-04-02] MEDS: HydrALAZINE HCL 50 MG TABLET PO SCH ×3 (09:18→21:13)
[2022-04-02] MEDS: ACETAMINOPHEN 325 MG TABLET PO PRN (15:36)
[2022-04-02 16:56] VITALS: BP 115/67
[2022-04-02 21:00] VITALS: BP 122/2
[2022-04-03] MEDS: HEPARIN SODIUM,PORCINE 5,000 UNITS/ML VIAL SQ SCH ×4 (00:26→23:39)
[2022-04-03 03:43] VITALS: BP 111/63
[2022-04-03 07:56] VITALS: BP 104/54
[2022-04-03] MEDS: DIVALPROEX SODIUM 500 MG ER TABLET PO SCH ×3 (08:00→20:05)
[2022-04-03] MEDS: QUEtiapine FUMARATE 100 MG TABLET PO SCH ×2 (08:00→20:05)
[2022-04-03] MEDS: QUEtiapine FUMARATE 25 MG TABLET PO SCH ×3 (08:00→20:05)
[2022-04-03] MEDS: PANTOPRAZOLE SODIUM 40 MG DR TABLET PO SCH (08:00)
[2022-04-03] MEDS: FAMOTIDINE 20 MG TABLET PO SCH ×2 (08:01→20:04)
[2022-04-03] MEDS: CARVEDILOL 6.25 MG TABLET PO SCH ×2 (08:01→20:05)
[2022-04-03] MEDS: DOCUSATE SODIUM 100 MG CAPSULE PO SCH ×2 (08:01→20:05)
[2022-04-03 11:10] VITALS: BP 125/80
[2022-04-03] MEDS: LISINOPRIL 20 MG TABLET PO SCH (12:17)
[2022-04-03] MEDS: HydrALAZINE HCL 50 MG TABLET PO SCH ×3 (12:17→20:05)
[2022-04-03 15:45] VITALS: BP 116/74
[2022-04-03 20:00] VITALS: BP 102/50
[2022-04-04 03:29] VITALS: BP 112/76
[2022-04-04 07:23] VITALS: BP 121/61
[2022-04-04] MEDS: PANTOPRAZOLE SODIUM 40 MG DR TABLET PO SCH (08:19)
[2022-04-04] MEDS: DIVALPROEX SODIUM 500 MG ER TABLET PO SCH ×3 (08:19→21:49)
[2022-04-04] MEDS: LISINOPRIL 20 MG TABLET PO SCH (08:19)
[2022-04-04] MEDS: HydrALAZINE HCL 50 MG TABLET PO SCH ×3 (08:19→21:00)
[2022-04-04] MEDS: QUEtiapine FUMARATE 25 MG TABLET PO SCH ×3 (08:19→21:49)
[2022-04-04] MEDS: QUEtiapine FUMARATE 100 MG TABLET PO SCH ×2 (08:19→21:50)
[2022-04-04] MEDS: HEPARIN SODIUM,PORCINE 5,000 UNITS/ML VIAL SQ SCH ×2 (08:20→16:53)
[2022-04-04] MEDS: CARVEDILOL 6.25 MG TABLET PO SCH ×2 (08:20→21:00)
[2022-04-04] MEDS: FAMOTIDINE 20 MG TABLET PO SCH ×2 (08:20→21:49)
[2022-04-04] MEDS: DOCUSATE SODIUM 100 MG CAPSULE PO SCH ×2 (08:20→21:49)
[2022-04-04] MEDS: CloNIDine 0.3 MG/24 HOUR PATCH TD SCH (10:29)
[2022-04-04 13:25] LABS: COVID AG,FIA SOURCE NASAL SWAB
[2022-04-04 14:44] VITALS: BP 102/61
[2022-04-04 20:30] VITALS: BP 98/64
[2022-04-05 04:30] VITALS: BP 112/72
[2022-04-05 07:52] VITALS: BP 122/68
[2022-04-05] MEDS: DOCUSATE SODIUM 100 MG CAPSULE PO SCH ×2 (08:09→21:49)
[2022-04-05] MEDS: CARVEDILOL 6.25 MG TABLET PO SCH ×3 (08:09→21:49)
[2022-04-05] MEDS: DIVALPROEX SODIUM 500 MG ER TABLET PO SCH ×3 (08:09→21:49)
[2022-04-05] MEDS: FAMOTIDINE 20 MG TABLET PO SCH ×2 (08:09→21:49)
[2022-04-05] MEDS: LISINOPRIL 20 MG TABLET PO SCH (08:10)
[2022-04-05] MEDS: QUEtiapine FUMARATE 25 MG TABLET PO SCH ×3 (08:10→21:49)
[2022-04-05] MEDS: QUEtiapine FUMARATE 100 MG TABLET PO SCH ×2 (08:10→21:49)
[2022-04-05] MEDS: HEPARIN SODIUM,PORCINE 5,000 UNITS/ML VIAL SQ SCH ×3 (08:11→15:53)
[2022-04-05] MEDS: PANTOPRAZOLE SODIUM 40 MG DR TABLET PO SCH (08:15)
[2022-04-05] MEDS: ACETAMINOPHEN 325 MG TABLET PO PRN (11:13)
[2022-04-05] MEDS: HydrALAZINE HCL 50 MG TABLET PO SCH ×4 (11:17→21:49)
[2022-04-05 16:00] VITALS: BP 104/61
[2022-04-05 21:55] VITALS: BP 133/61
[2022-04-06 03:52] VITALS: BP 129/67
[2022-04-06 07:24] VITALS: BP 107/80
[2022-04-06] MEDS: QUEtiapine FUMARATE 100 MG TABLET PO SCH ×2 (08:05→20:25)
[2022-04-06] MEDS: DIVALPROEX SODIUM 500 MG ER TABLET PO SCH ×3 (08:05→20:25)
[2022-04-06] MEDS: QUEtiapine FUMARATE 25 MG TABLET PO SCH ×3 (08:05→20:25)
[2022-04-06] MEDS: HydrALAZINE HCL 50 MG TABLET PO SCH ×3 (08:05→20:34)
[2022-04-06] MEDS: HEPARIN SODIUM,PORCINE 5,000 UNITS/ML VIAL SQ SCH ×4 (08:06→23:34)
[2022-04-06] MEDS: DOCUSATE SODIUM 100 MG CAPSULE PO SCH ×2 (08:06→20:25)
[2022-04-06] MEDS: CARVEDILOL 6.25 MG TABLET PO SCH ×2 (08:06→20:25)
[2022-04-06] MEDS: PANTOPRAZOLE SODIUM 40 MG DR TABLET PO SCH (08:06)
[2022-04-06] MEDS: LISINOPRIL 20 MG TABLET PO SCH (08:06)
[2022-04-06] MEDS: FAMOTIDINE 20 MG TABLET PO SCH ×2 (08:06→20:25)
[2022-04-06 15:35] VITALS: BP 110/71
[2022-04-06 19:30] VITALS: BP 100/62
[2022-04-07 04:30] VITALS: BP 108/65
[2022-04-07] MEDS: HEPARIN SODIUM,PORCINE 5,000 UNITS/ML VIAL SQ SCH ×3 (08:26→23:49)
[2022-04-07 08:29] VITALS: BP 124/93
[2022-04-07] MEDS: DOCUSATE SODIUM 100 MG CAPSULE PO SCH ×2 (08:59→22:39)
[2022-04-07] MEDS: QUEtiapine FUMARATE 100 MG TABLET PO SCH ×2 (09:00→22:39)
[2022-04-07] MEDS: HydrALAZINE HCL 50 MG TABLET PO SCH ×3 (09:00→22:38)
[2022-04-07] MEDS: DIVALPROEX SODIUM 500 MG ER TABLET PO SCH ×3 (09:00→22:39)
[2022-04-07] MEDS: FAMOTIDINE 20 MG TABLET PO SCH ×2 (09:00→22:39)
[2022-04-07] MEDS: CARVEDILOL 6.25 MG TABLET PO SCH ×2 (09:00→22:39)
[2022-04-07] MEDS: LISINOPRIL 20 MG TABLET PO SCH (09:00)
[2022-04-07] MEDS: PANTOPRAZOLE SODIUM 40 MG DR TABLET PO SCH (09:00)
[2022-04-07] MEDS: QUEtiapine FUMARATE 25 MG TABLET PO SCH ×3 (09:01→22:39)
[2022-04-07] MEDS: ACETAMINOPHEN 325 MG TABLET PO PRN (11:33)
[2022-04-07 15:50] VITALS: BP 100/70
[2022-04-07 19:30] VITALS: BP 128/67
[2022-04-08 05:00] VITALS: BP 102/68
[2022-04-08 08:29] VITALS: BP 131/90
[2022-04-08] MEDS: CARVEDILOL 6.25 MG TABLET PO SCH ×2 (08:42→21:34)
[2022-04-08] MEDS: FAMOTIDINE 20 MG TABLET PO SCH ×2 (08:42→21:34)
[2022-04-08] MEDS: HydrALAZINE HCL 50 MG TABLET PO SCH ×3 (08:42→21:34)
[2022-04-08] MEDS: PANTOPRAZOLE SODIUM 40 MG DR TABLET PO SCH (08:43)
[2022-04-08] MEDS: DOCUSATE SODIUM 100 MG CAPSULE PO SCH ×2 (08:43→21:34)
[2022-04-08] MEDS: QUEtiapine FUMARATE 100 MG TABLET PO SCH ×2 (08:43→21:34)
[2022-04-08] MEDS: DIVALPROEX SODIUM 500 MG ER TABLET PO SCH ×3 (08:43→21:34)
[2022-04-08] MEDS: QUEtiapine FUMARATE 25 MG TABLET PO SCH ×3 (08:43→21:34)
[2022-04-08] MEDS: HEPARIN SODIUM,PORCINE 5,000 UNITS/ML VIAL SQ SCH ×3 (08:44→23:52)
[2022-04-08] MEDS: LISINOPRIL 20 MG TABLET PO SCH (10:14)
[2022-04-08] MEDS: ACETAMINOPHEN 325 MG TABLET PO PRN (11:49)
[2022-04-08 15:09] VITALS: BP 110/85
[2022-04-08 21:34] VITALS: BP 122/73
[2022-04-09 03:00] VITALS: BP 130/87
[2022-04-09 08:06] VITALS: BP 110/86
[2022-04-09] MEDS: QUEtiapine FUMARATE 100 MG TABLET PO SCH ×2 (09:00→20:03)
[2022-04-09] MEDS: DIVALPROEX SODIUM 500 MG ER TABLET PO SCH ×3 (09:00→20:03)
[2022-04-09] MEDS: HydrALAZINE HCL 50 MG TABLET PO SCH ×3 (09:00→20:03)
[2022-04-09] MEDS: HEPARIN SODIUM,PORCINE 5,000 UNITS/ML VIAL SQ SCH ×3 (09:00→23:21)
[2022-04-09] MEDS: FAMOTIDINE 20 MG TABLET PO SCH ×2 (09:00→20:03)
[2022-04-09] MEDS: DOCUSATE SODIUM 100 MG CAPSULE PO SCH ×2 (09:00→20:04)
[2022-04-09] MEDS: CARVEDILOL 6.25 MG TABLET PO SCH ×2 (09:00→20:03)
[2022-04-09] MEDS: QUEtiapine FUMARATE 25 MG TABLET PO SCH ×3 (09:00→20:03)
[2022-04-09] MEDS: PANTOPRAZOLE SODIUM 40 MG DR TABLET PO SCH (09:00)
[2022-04-09] MEDS: LISINOPRIL 20 MG TABLET PO SCH (09:01)
[2022-04-09 15:12] VITALS: BP 117/78
[2022-04-09] MEDS: ACETAMINOPHEN 325 MG TABLET PO PRN (15:51)
[2022-04-09 20:35] VITALS: BP 114/71
[2022-04-10 04:00] VITALS: BP 118/73
[2022-04-10 08:51] VITALS: BP 134/64
[2022-04-10] MEDS: HEPARIN SODIUM,PORCINE 5,000 UNITS/ML VIAL SQ SCH ×3 (08:55→23:36)
[2022-04-10] MEDS: FAMOTIDINE 20 MG TABLET PO SCH ×2 (08:55→20:06)
[2022-04-10] MEDS: DOCUSATE SODIUM 100 MG CAPSULE PO SCH ×2 (08:55→20:06)
[2022-04-10] MEDS: CARVEDILOL 6.25 MG TABLET PO SCH ×2 (08:55→20:08)
[2022-04-10] MEDS: DIVALPROEX SODIUM 500 MG ER TABLET PO SCH ×3 (08:55→20:06)
[2022-04-10] MEDS: LISINOPRIL 20 MG TABLET PO SCH (08:55)
[2022-04-10] MEDS: PANTOPRAZOLE SODIUM 40 MG DR TABLET PO SCH (08:55)
[2022-04-10] MEDS: QUEtiapine FUMARATE 100 MG TABLET PO SCH ×2 (08:56→20:07)
[2022-04-10] MEDS: HydrALAZINE HCL 50 MG TABLET PO SCH ×3 (08:56→20:06)
[2022-04-10] MEDS: QUEtiapine FUMARATE 25 MG TABLET PO SCH ×3 (08:56→20:07)
[2022-04-10] MEDS: ACETAMINOPHEN 325 MG TABLET PO PRN (09:53)
[2022-04-10 15:04] VITALS: BP 136/90
[2022-04-10 19:45] VITALS: BP 106/67
[2022-04-11 04:15] VITALS: BP 104/69
[2022-04-11 07:29] VITALS: BP 118/72
[2022-04-11] MEDS: DIVALPROEX SODIUM 500 MG ER TABLET PO SCH ×3 (08:47→20:00)
[2022-04-11] MEDS: QUEtiapine FUMARATE 25 MG TABLET PO SCH ×3 (08:48→20:00)
[2022-04-11] MEDS: FAMOTIDINE 20 MG TABLET PO SCH ×2 (08:48→20:01)
[2022-04-11] MEDS: LISINOPRIL 20 MG TABLET PO SCH (08:48)
[2022-04-11] MEDS: CARVEDILOL 6.25 MG TABLET PO SCH ×2 (08:48→20:01)
[2022-04-11] MEDS: HEPARIN SODIUM,PORCINE 5,000 UNITS/ML VIAL SQ SCH ×3 (08:48→23:21)
[2022-04-11] MEDS: HydrALAZINE HCL 50 MG TABLET PO SCH ×3 (08:48→20:00)
[2022-04-11] MEDS: QUEtiapine FUMARATE 100 MG TABLET PO SCH ×2 (08:48→20:00)
[2022-04-11] MEDS: PANTOPRAZOLE SODIUM 40 MG DR TABLET PO SCH (08:48)
[2022-04-11] MEDS: DOCUSATE SODIUM 100 MG CAPSULE PO SCH ×2 (08:48→20:01)
[2022-04-11] MEDS: CloNIDine 0.3 MG/24 HOUR PATCH TD SCH (08:49)
[2022-04-11 12:23] LABS: COVID AG,FIA SOURCE NASAL SWAB
[2022-04-11 15:55] VITALS: BP 124/76
[2022-04-11 20:40] VITALS: BP 119/93
[2022-04-12 04:10] VITALS: BP 130/69
[2022-04-12 07:38] VITALS: BP 126/75
[2022-04-12] MEDS: CARVEDILOL 6.25 MG TABLET PO SCH ×2 (08:02→20:14)
[2022-04-12] MEDS: PANTOPRAZOLE SODIUM 40 MG DR TABLET PO SCH (08:02)
[2022-04-12] MEDS: QUEtiapine FUMARATE 25 MG TABLET PO SCH ×3 (08:02→20:14)
[2022-04-12] MEDS: DOCUSATE SODIUM 100 MG CAPSULE PO SCH ×2 (08:02→20:14)
[2022-04-12] MEDS: LISINOPRIL 20 MG TABLET PO SCH (08:02)
[2022-04-12] MEDS: HydrALAZINE HCL 50 MG TABLET PO SCH ×3 (08:02→20:14)
[2022-04-12] MEDS: HEPARIN SODIUM,PORCINE 5,000 UNITS/ML VIAL SQ SCH ×3 (08:02→23:18)
[2022-04-12] MEDS: DIVALPROEX SODIUM 500 MG ER TABLET PO SCH ×3 (08:02→20:14)
[2022-04-12] MEDS: FAMOTIDINE 20 MG TABLET PO SCH ×2 (08:02→20:14)
[2022-04-12] MEDS: QUEtiapine FUMARATE 100 MG TABLET PO SCH ×2 (08:02→20:14)
[2022-04-12 15:03] VITALS: BP 132/78
[2022-04-12] MEDS: ACETAMINOPHEN 325 MG TABLET PO PRN (15:19)
[2022-04-13 05:00] VITALS: BP 126/74
[2022-04-13 08:09] VITALS: BP 138/75
[2022-04-13] MEDS: CARVEDILOL 6.25 MG TABLET PO SCH ×2 (08:56→20:20)
[2022-04-13] MEDS: DIVALPROEX SODIUM 500 MG ER TABLET PO SCH ×3 (08:56→20:20)
[2022-04-13] MEDS: QUEtiapine FUMARATE 25 MG TABLET PO SCH ×3 (08:56→20:20)
[2022-04-13] MEDS: LISINOPRIL 20 MG TABLET PO SCH (08:56)
[2022-04-13] MEDS: PANTOPRAZOLE SODIUM 40 MG DR TABLET PO SCH (08:56)
[2022-04-13] MEDS: QUEtiapine FUMARATE 100 MG TABLET PO SCH ×2 (08:56→20:20)
[2022-04-13] MEDS: HydrALAZINE HCL 50 MG TABLET PO SCH ×3 (08:56→20:20)
[2022-04-13] MEDS: FAMOTIDINE 20 MG TABLET PO SCH ×2 (08:56→20:20)
[2022-04-13] MEDS: DOCUSATE SODIUM 100 MG CAPSULE PO SCH ×2 (08:57→20:19)
[2022-04-13] MEDS: HEPARIN SODIUM,PORCINE 5,000 UNITS/ML VIAL SQ SCH ×3 (08:57→23:49)
[2022-04-13 15:21] VITALS: BP 141/92
[2022-04-13 19:32] VITALS: BP 128/89
[2022-04-14 05:01] VITALS: BP 126/65
[2022-04-14 07:36] VITALS: BP 104/67
[2022-04-14] MEDS: LISINOPRIL 20 MG TABLET PO SCH (09:14)
[2022-04-14] MEDS: QUEtiapine FUMARATE 25 MG TABLET PO SCH ×3 (09:14→20:54)
[2022-04-14] MEDS: DOCUSATE SODIUM 100 MG CAPSULE PO SCH ×2 (09:14→20:53)
[2022-04-14] MEDS: DIVALPROEX SODIUM 500 MG ER TABLET PO SCH ×4 (09:14→21:42)
[2022-04-14] MEDS: HydrALAZINE HCL 50 MG TABLET PO SCH ×3 (09:14→20:53)
[2022-04-14] MEDS: PANTOPRAZOLE SODIUM 40 MG DR TABLET PO SCH (09:14)
[2022-04-14] MEDS: CARVEDILOL 6.25 MG TABLET PO SCH ×2 (09:14→20:54)
[2022-04-14] MEDS: QUEtiapine FUMARATE 100 MG TABLET PO SCH ×2 (09:15→20:53)
[2022-04-14] MEDS: HEPARIN SODIUM,PORCINE 5,000 UNITS/ML VIAL SQ SCH ×3 (09:15→23:45)
[2022-04-14] MEDS: FAMOTIDINE 20 MG TABLET PO SCH ×2 (09:16→20:53)
[2022-04-14 15:15] VITALS: BP 116/58
[2022-04-14 19:21] VITALS: BP 122/70
[2022-04-15 05:28] VITALS: BP 128/78
[2022-04-15] MEDS: HEPARIN SODIUM,PORCINE 5,000 UNITS/ML VIAL SQ SCH ×3 (08:24→23:23)
[2022-04-15] MEDS: PANTOPRAZOLE SODIUM 40 MG DR TABLET PO SCH (08:24)
[2022-04-15] MEDS: DOCUSATE SODIUM 100 MG CAPSULE PO SCH ×2 (08:24→20:00)
[2022-04-15] MEDS: QUEtiapine FUMARATE 25 MG TABLET PO SCH ×3 (08:24→20:00)
[2022-04-15] MEDS: FAMOTIDINE 20 MG TABLET PO SCH ×2 (08:24→20:00)
[2022-04-15] MEDS: DIVALPROEX SODIUM 500 MG ER TABLET PO SCH ×3 (08:24→20:01)
[2022-04-15] MEDS: QUEtiapine FUMARATE 100 MG TABLET PO SCH ×2 (08:25→20:01)
[2022-04-15] MEDS: LISINOPRIL 20 MG TABLET PO SCH (08:25)
[2022-04-15] MEDS: CARVEDILOL 6.25 MG TABLET PO SCH ×2 (08:25→20:00)
[2022-04-15] MEDS: HydrALAZINE HCL 50 MG TABLET PO SCH ×3 (08:25→20:01)
[2022-04-15 08:28] VITALS: BP 103/73
[2022-04-15] MEDS: ACETAMINOPHEN 325 MG TABLET PO PRN (13:31)
[2022-04-15 15:41] VITALS: BP 113/61
[2022-04-15 20:05] VITALS: BP 120/70
[2022-04-16 05:00] VITALS: BP 110/72
[2022-04-16 07:51] VITALS: BP 118/85
[2022-04-16] MEDS: HEPARIN SODIUM,PORCINE 5,000 UNITS/ML VIAL SQ SCH ×3 (08:34→15:12)
[2022-04-16] MEDS: DOCUSATE SODIUM 100 MG CAPSULE PO SCH ×2 (08:35→20:35)
[2022-04-16] MEDS: FAMOTIDINE 20 MG TABLET PO SCH ×2 (08:35→20:35)
[2022-04-16] MEDS: PANTOPRAZOLE SODIUM 40 MG DR TABLET PO SCH (08:35)
[2022-04-16] MEDS: CARVEDILOL 6.25 MG TABLET PO SCH ×3 (08:35→21:00)
[2022-04-16] MEDS: QUEtiapine FUMARATE 100 MG TABLET PO SCH ×2 (08:36→20:35)
[2022-04-16] MEDS: QUEtiapine FUMARATE 25 MG TABLET PO SCH ×3 (08:36→20:35)
[2022-04-16] MEDS: DIVALPROEX SODIUM 500 MG ER TABLET PO SCH ×3 (08:36→20:35)
[2022-04-16] MEDS: LISINOPRIL 20 MG TABLET PO SCH (08:36)
[2022-04-16] MEDS: HydrALAZINE HCL 50 MG TABLET PO SCH ×4 (08:36→21:00)
[2022-04-16 15:21] VITALS: BP 104/59
[2022-04-16 19:30] VITALS: BP 96/57
[2022-04-17 05:00] VITALS: BP 128/70
[2022-04-17 07:14] VITALS: BP 132/58
[2022-04-17] MEDS: LISINOPRIL 20 MG TABLET PO SCH (07:49)
[2022-04-17] MEDS: FAMOTIDINE 20 MG TABLET PO SCH ×2 (07:49→20:16)
[2022-04-17] MEDS: CARVEDILOL 6.25 MG TABLET PO SCH ×2 (07:49→20:16)
[2022-04-17] MEDS: PANTOPRAZOLE SODIUM 40 MG DR TABLET PO SCH (07:49)
[2022-04-17] MEDS: DIVALPROEX SODIUM 500 MG ER TABLET PO SCH ×3 (07:50→20:16)
[2022-04-17] MEDS: DOCUSATE SODIUM 100 MG CAPSULE PO SCH ×2 (07:50→20:16)
[2022-04-17] MEDS: HEPARIN SODIUM,PORCINE 5,000 UNITS/ML VIAL SQ SCH ×3 (07:50→18:15)
[2022-04-17] MEDS: QUEtiapine FUMARATE 25 MG TABLET PO SCH ×3 (08:00→20:18)
[2022-04-17] MEDS: QUEtiapine FUMARATE 100 MG TABLET PO SCH ×2 (08:00→20:17)
[2022-04-17] MEDS: HydrALAZINE HCL 50 MG TABLET PO SCH ×3 (09:00→20:18)
[2022-04-17 15:21] VITALS: BP 101/68
[2022-04-17 20:19] VITALS: BP 124/53
[2022-04-18] MEDS: HEPARIN SODIUM,PORCINE 5,000 UNITS/ML VIAL SQ SCH ×3 (00:12→17:03)
[2022-04-18 05:00] VITALS: BP 122/60
[2022-04-18 07:00] VITALS: BP 124/72
[2022-04-18] MEDS: CloNIDine 0.3 MG/24 HOUR PATCH TD SCH (09:15)
[2022-04-18] MEDS: HydrALAZINE HCL 50 MG TABLET PO SCH ×3 (09:15→20:32)
[2022-04-18] MEDS: DOCUSATE SODIUM 100 MG CAPSULE PO SCH ×2 (09:15→20:32)
[2022-04-18] MEDS: CARVEDILOL 6.25 MG TABLET PO SCH ×2 (09:15→20:32)
[2022-04-18] MEDS: FAMOTIDINE 20 MG TABLET PO SCH ×2 (09:15→20:32)
[2022-04-18] MEDS: PANTOPRAZOLE SODIUM 40 MG DR TABLET PO SCH (09:15)
[2022-04-18] MEDS: DIVALPROEX SODIUM 500 MG ER TABLET PO SCH ×3 (09:15→20:32)
[2022-04-18] MEDS: LISINOPRIL 20 MG TABLET PO SCH (09:19)
[2022-04-18] MEDS: QUEtiapine FUMARATE 100 MG TABLET PO SCH ×2 (09:21→20:32)
[2022-04-18] MEDS: QUEtiapine FUMARATE 25 MG TABLET PO SCH ×3 (09:21→20:32)
[2022-04-18 15:16] VITALS: BP 119/79
[2022-04-18 19:15] VITALS: BP 126/66
[2022-04-19 05:30] VITALS: BP 101/63
[2022-04-19 07:50] VITALS: BP 113/86
[2022-04-19] MEDS: CARVEDILOL 6.25 MG TABLET PO SCH ×2 (09:20→20:02)
[2022-04-19] MEDS: HydrALAZINE HCL 50 MG TABLET PO SCH ×4 (09:20→20:07)
[2022-04-19] MEDS: PANTOPRAZOLE SODIUM 40 MG DR TABLET PO SCH (09:20)
[2022-04-19] MEDS: DIVALPROEX SODIUM 500 MG ER TABLET PO SCH ×3 (09:21→20:02)
[2022-04-19] MEDS: QUEtiapine FUMARATE 25 MG TABLET PO SCH ×3 (09:21→20:02)
[2022-04-19] MEDS: QUEtiapine FUMARATE 100 MG TABLET PO SCH ×2 (09:21→20:02)
[2022-04-19] MEDS: LISINOPRIL 20 MG TABLET PO SCH (09:21)
[2022-04-19] MEDS: DOCUSATE SODIUM 100 MG CAPSULE PO SCH ×2 (09:22→20:02)
[2022-04-19] MEDS: HEPARIN SODIUM,PORCINE 5,000 UNITS/ML VIAL SQ SCH ×3 (09:22→16:39)
[2022-04-19] MEDS: FAMOTIDINE 20 MG TABLET PO SCH ×2 (09:22→20:02)
[2022-04-19] MEDS: HYDROCODONE/ACETAMINOPHEN 5-325 MG TABLET PO PRN (09:24)
[2022-04-19 15:04] VITALS: BP 117/60
[2022-04-19 19:18] VITALS: BP 100/55
[2022-04-20 05:45] VITALS: BP 110/64
[2022-04-20 07:21] VITALS: BP 118/79
[2022-04-20] MEDS: LISINOPRIL 20 MG TABLET PO SCH (08:10)
[2022-04-20] MEDS: QUEtiapine FUMARATE 100 MG TABLET PO SCH ×2 (08:10→19:50)
[2022-04-20] MEDS: DOCUSATE SODIUM 100 MG CAPSULE PO SCH ×2 (08:10→19:51)
[2022-04-20] MEDS: HEPARIN SODIUM,PORCINE 5,000 UNITS/ML VIAL SQ SCH ×4 (08:10→23:39)
[2022-04-20] MEDS: CARVEDILOL 6.25 MG TABLET PO SCH ×2 (08:10→19:51)
[2022-04-20] MEDS: HydrALAZINE HCL 50 MG TABLET PO SCH ×3 (08:10→19:51)
[2022-04-20] MEDS: DIVALPROEX SODIUM 500 MG ER TABLET PO SCH ×3 (08:10→19:50)
[2022-04-20] MEDS: PANTOPRAZOLE SODIUM 40 MG DR TABLET PO SCH (08:11)
[2022-04-20] MEDS: QUEtiapine FUMARATE 25 MG TABLET PO SCH ×3 (08:11→19:50)
[2022-04-20] MEDS: FAMOTIDINE 20 MG TABLET PO SCH ×2 (08:12→19:50)
[2022-04-20] MEDS: MAGNESIUM HYDROXIDE SUSPENSION 30 ML UDCUP PO PRN (15:51)
[2022-04-20 15:54] VITALS: BP 102/68
[2022-04-20 19:53] VITALS: BP 110/68
[2022-04-21 04:00] VITALS: BP 111/73
[2022-04-21] MEDS: DIVALPROEX SODIUM 500 MG ER TABLET PO SCH ×3 (08:41→20:21)
[2022-04-21] MEDS: QUEtiapine FUMARATE 100 MG TABLET PO SCH ×2 (08:42→20:21)
[2022-04-21] MEDS: HEPARIN SODIUM,PORCINE 5,000 UNITS/ML VIAL SQ SCH ×3 (08:42→23:42)
[2022-04-21] MEDS: QUEtiapine FUMARATE 25 MG TABLET PO SCH ×3 (08:42→20:21)
[2022-04-21] MEDS: CARVEDILOL 6.25 MG TABLET PO SCH ×2 (08:42→20:21)
[2022-04-21] MEDS: PANTOPRAZOLE SODIUM 40 MG DR TABLET PO SCH (08:42)
[2022-04-21] MEDS: FAMOTIDINE 20 MG TABLET PO SCH ×2 (08:42→20:22)
[2022-04-21] MEDS: DOCUSATE SODIUM 100 MG CAPSULE PO SCH ×2 (08:42→20:21)
[2022-04-21] MEDS: LISINOPRIL 20 MG TABLET PO SCH (08:42)
[2022-04-21] MEDS: HydrALAZINE HCL 50 MG TABLET PO SCH ×3 (09:07→20:21)
[2022-04-21 11:22] VITALS: BP 117/78
[2022-04-21 16:43] VITALS: BP 105/66
[2022-04-21 19:35] VITALS: BP 101/67
[2022-04-22 05:48] VITALS: BP 106/62
[2022-04-22] MEDS: LISINOPRIL 20 MG TABLET PO SCH (08:01)
[2022-04-22] MEDS: DIVALPROEX SODIUM 500 MG ER TABLET PO SCH ×3 (08:01→21:15)
[2022-04-22] MEDS: HydrALAZINE HCL 50 MG TABLET PO SCH ×3 (08:01→21:00)
[2022-04-22] MEDS: CARVEDILOL 6.25 MG TABLET PO SCH ×2 (08:01→21:15)
[2022-04-22] MEDS: QUEtiapine FUMARATE 25 MG TABLET PO SCH ×3 (08:03→21:15)
[2022-04-22] MEDS: DOCUSATE SODIUM 100 MG CAPSULE PO SCH ×2 (08:03→21:15)
[2022-04-22] MEDS: PANTOPRAZOLE SODIUM 40 MG DR TABLET PO SCH (08:03)
[2022-04-22] MEDS: FAMOTIDINE 20 MG TABLET PO SCH ×2 (08:03→21:15)
[2022-04-22] MEDS: QUEtiapine FUMARATE 100 MG TABLET PO SCH ×2 (08:03→21:15)
[2022-04-22] MEDS: HEPARIN SODIUM,PORCINE 5,000 UNITS/ML VIAL SQ SCH ×3 (08:07→23:22)
[2022-04-22 15:26] VITALS: BP 90/54
[2022-04-22 20:30] VITALS: BP 103/81
[2022-04-22] MEDS: ZOLPIDEM TARTRATE 5 MG TABLET PO PRN (23:22)
[2022-04-23 05:15] VITALS: BP 121/73
[2022-04-23 08:05] VITALS: BP 118/70
[2022-04-23] MEDS: DIVALPROEX SODIUM 500 MG ER TABLET PO SCH ×3 (08:39→20:01)
[2022-04-23] MEDS: CARVEDILOL 6.25 MG TABLET PO SCH ×2 (08:39→20:02)
[2022-04-23] MEDS: PANTOPRAZOLE SODIUM 40 MG DR TABLET PO SCH (08:39)
[2022-04-23] MEDS: QUEtiapine FUMARATE 100 MG TABLET PO SCH ×2 (08:39→20:02)
[2022-04-23] MEDS: LISINOPRIL 20 MG TABLET PO SCH (08:39)
[2022-04-23] MEDS: QUEtiapine FUMARATE 25 MG TABLET PO SCH ×3 (08:40→20:02)
[2022-04-23] MEDS: FAMOTIDINE 20 MG TABLET PO SCH ×2 (08:40→20:01)
[2022-04-23] MEDS: DOCUSATE SODIUM 100 MG CAPSULE PO SCH ×2 (08:40→20:01)
[2022-04-23] MEDS: HydrALAZINE HCL 50 MG TABLET PO SCH ×3 (08:40→20:02)
[2022-04-23] MEDS: HEPARIN SODIUM,PORCINE 5,000 UNITS/ML VIAL SQ SCH ×3 (08:46→23:19)
[2022-04-23 15:00] VITALS: BP 125/75
[2022-04-23 19:30] VITALS: BP 107/72
[2022-04-24 05:00] VITALS: BP 100/66
[2022-04-24 07:21] VITALS: BP 107/73
[2022-04-24] MEDS: DIVALPROEX SODIUM 500 MG ER TABLET PO SCH ×3 (08:45→20:10)
[2022-04-24] MEDS: HEPARIN SODIUM,PORCINE 5,000 UNITS/ML VIAL SQ SCH ×3 (08:45→23:33)
[2022-04-24] MEDS: QUEtiapine FUMARATE 25 MG TABLET PO SCH ×3 (08:45→20:12)
[2022-04-24] MEDS: PANTOPRAZOLE SODIUM 40 MG DR TABLET PO SCH (08:45)
[2022-04-24] MEDS: QUEtiapine FUMARATE 100 MG TABLET PO SCH ×2 (08:46→20:10)
[2022-04-24] MEDS: DOCUSATE SODIUM 100 MG CAPSULE PO SCH ×2 (08:46→20:09)
[2022-04-24] MEDS: FAMOTIDINE 20 MG TABLET PO SCH ×2 (08:46→20:10)
[2022-04-24] MEDS: CARVEDILOL 6.25 MG TABLET PO SCH ×2 (09:00→20:10)
[2022-04-24] MEDS: LISINOPRIL 20 MG TABLET PO SCH (09:00)
[2022-04-24] MEDS: HydrALAZINE HCL 50 MG TABLET PO SCH ×3 (09:00→20:10)
[2022-04-24 15:19] VITALS: BP 126/67
[2022-04-24 19:30] VITALS: BP 114/63
[2022-04-25 05:00] VITALS: BP 121/65
[2022-04-25 07:26] VITALS: BP 108/77
[2022-04-25] MEDS: HEPARIN SODIUM,PORCINE 5,000 UNITS/ML VIAL SQ SCH ×2 (08:52→16:26)
[2022-04-25] MEDS: PANTOPRAZOLE SODIUM 40 MG DR TABLET PO SCH (08:52)
[2022-04-25] MEDS: CARVEDILOL 6.25 MG TABLET PO SCH ×2 (08:53→20:23)
[2022-04-25] MEDS: FAMOTIDINE 20 MG TABLET PO SCH ×2 (08:53→20:24)
[2022-04-25] MEDS: DOCUSATE SODIUM 100 MG CAPSULE PO SCH ×2 (08:53→20:23)
[2022-04-25] MEDS: HydrALAZINE HCL 50 MG TABLET PO SCH ×3 (08:53→20:23)
[2022-04-25] MEDS: DIVALPROEX SODIUM 500 MG ER TABLET PO SCH ×3 (08:53→20:23)
[2022-04-25] MEDS: QUEtiapine FUMARATE 25 MG TABLET PO SCH ×3 (08:54→20:23)
[2022-04-25] MEDS: LISINOPRIL 20 MG TABLET PO SCH (08:54)
[2022-04-25] MEDS: QUEtiapine FUMARATE 100 MG TABLET PO SCH ×2 (08:54→20:23)
[2022-04-25] MEDS: CloNIDine 0.3 MG/24 HOUR PATCH TD SCH (08:55)
[2022-04-25 15:59] VITALS: BP 117/81
[2022-04-25 20:00] VITALS: BP 136/82
[2022-04-26 05:00] VITALS: BP 124/64
[2022-04-26 07:29] VITALS: BP 132/68
[2022-04-26] MEDS: FAMOTIDINE 20 MG TABLET PO SCH ×2 (07:55→19:57)
[2022-04-26] MEDS: LISINOPRIL 20 MG TABLET PO SCH (07:55)
[2022-04-26] MEDS: DOCUSATE SODIUM 100 MG CAPSULE PO SCH ×2 (07:55→19:57)
[2022-04-26] MEDS: CARVEDILOL 6.25 MG TABLET PO SCH ×2 (07:55→19:57)
[2022-04-26] MEDS: PANTOPRAZOLE SODIUM 40 MG DR TABLET PO SCH (07:55)
[2022-04-26] MEDS: DIVALPROEX SODIUM 500 MG ER TABLET PO SCH ×3 (07:55→19:56)
[2022-04-26] MEDS: QUEtiapine FUMARATE 100 MG TABLET PO SCH ×2 (07:57→19:57)
[2022-04-26] MEDS: QUEtiapine FUMARATE 25 MG TABLET PO SCH ×3 (07:57→19:57)
[2022-04-26] MEDS: HydrALAZINE HCL 50 MG TABLET PO SCH ×3 (07:58→19:57)
[2022-04-26] MEDS: HEPARIN SODIUM,PORCINE 5,000 UNITS/ML VIAL SQ SCH ×4 (07:59→23:10)
[2022-04-26 15:08] VITALS: BP 121/65
[2022-04-26 19:42] VITALS: BP 114/65
[2022-04-26] MEDS: ACETAMINOPHEN 325 MG TABLET PO PRN (19:57)
[2022-04-27 05:15] VITALS: BP 110/61
[2022-04-27 08:04] VITALS: BP 107/73
[2022-04-27] MEDS: FAMOTIDINE 20 MG TABLET PO SCH ×2 (09:00→20:20)
[2022-04-27] MEDS: QUEtiapine FUMARATE 100 MG TABLET PO SCH ×2 (09:03→20:20)
[2022-04-27] MEDS: DIVALPROEX SODIUM 500 MG ER TABLET PO SCH ×3 (09:03→20:20)
[2022-04-27] MEDS: CARVEDILOL 6.25 MG TABLET PO SCH ×2 (09:03→20:26)
[2022-04-27] MEDS: HEPARIN SODIUM,PORCINE 5,000 UNITS/ML VIAL SQ SCH ×3 (09:03→23:20)
[2022-04-27] MEDS: LISINOPRIL 20 MG TABLET PO SCH (09:03)
[2022-04-27] MEDS: DOCUSATE SODIUM 100 MG CAPSULE PO SCH ×2 (09:03→20:20)
[2022-04-27] MEDS: QUEtiapine FUMARATE 25 MG TABLET PO SCH ×3 (09:04→20:20)
[2022-04-27] MEDS: HydrALAZINE HCL 50 MG TABLET PO SCH ×3 (09:04→20:27)
[2022-04-27] MEDS: PANTOPRAZOLE SODIUM 40 MG DR TABLET PO SCH (09:04)
[2022-04-27 16:37] VITALS: BP 93/61
[2022-04-27 20:30] VITALS: BP 155/59
[2022-04-28 04:48] VITALS: BP 111/72
[2022-04-28] MEDS: PANTOPRAZOLE SODIUM 40 MG DR TABLET PO SCH (08:35)
[2022-04-28] MEDS: DIVALPROEX SODIUM 500 MG ER TABLET PO SCH ×3 (08:36→20:11)
[2022-04-28] MEDS: CARVEDILOL 6.25 MG TABLET PO SCH ×2 (08:36→20:11)
[2022-04-28] MEDS: DOCUSATE SODIUM 100 MG CAPSULE PO SCH ×2 (08:36→20:11)
[2022-04-28] MEDS: LISINOPRIL 20 MG TABLET PO SCH (08:36)
[2022-04-28] MEDS: HEPARIN SODIUM,PORCINE 5,000 UNITS/ML VIAL SQ SCH ×3 (08:36→23:52)
[2022-04-28] MEDS: FAMOTIDINE 20 MG TABLET PO SCH ×2 (08:36→20:11)
[2022-04-28] MEDS: QUEtiapine FUMARATE 25 MG TABLET PO SCH ×3 (08:36→20:11)
[2022-04-28] MEDS: QUEtiapine FUMARATE 100 MG TABLET PO SCH ×2 (08:36→20:11)
[2022-04-28] MEDS: HydrALAZINE HCL 50 MG TABLET PO SCH ×3 (08:36→20:11)
[2022-04-28 08:41] VITALS: BP 131/85
[2022-04-28 16:03] VITALS: BP 104/60
[2022-04-28 19:49] VITALS: BP 129/75
[2022-04-29 05:33] VITALS: BP 106/74
[2022-04-29 07:38] VITALS: BP 105/64
[2022-04-29] MEDS: QUEtiapine FUMARATE 25 MG TABLET PO SCH ×3 (08:11→20:01)
[2022-04-29] MEDS: FAMOTIDINE 20 MG TABLET PO SCH ×2 (08:12→20:00)
[2022-04-29] MEDS: QUEtiapine FUMARATE 100 MG TABLET PO SCH ×2 (08:12→20:00)
[2022-04-29] MEDS: PANTOPRAZOLE SODIUM 40 MG DR TABLET PO SCH (08:12)
[2022-04-29] MEDS: DIVALPROEX SODIUM 500 MG ER TABLET PO SCH ×3 (08:12→20:00)
[2022-04-29] MEDS: HEPARIN SODIUM,PORCINE 5,000 UNITS/ML VIAL SQ SCH ×3 (08:13→23:27)
[2022-04-29] MEDS: DOCUSATE SODIUM 100 MG CAPSULE PO SCH ×2 (08:13→20:00)
[2022-04-29] MEDS: CARVEDILOL 6.25 MG TABLET PO SCH ×2 (09:00→20:00)
[2022-04-29] MEDS: HydrALAZINE HCL 50 MG TABLET PO SCH ×3 (09:00→20:00)
[2022-04-29] MEDS: LISINOPRIL 20 MG TABLET PO SCH (09:00)
[2022-04-29 09:09] VITALS: BP 108/54
[2022-04-29 15:30] VITALS: BP 132/85
[2022-04-29 19:28] VITALS: BP 128/95
[2022-04-30] VITALS (7 sets, daily range): BP systolic 94–132; BP diastolic 55–84
[2022-04-30] MEDS: HEPARIN SODIUM,PORCINE 5,000 UNITS/ML VIAL SQ SCH ×3 (07:52→23:30)
[2022-04-30] MEDS: CARVEDILOL 6.25 MG TABLET PO SCH ×2 (07:53→20:23)
[2022-04-30] MEDS: QUEtiapine FUMARATE 25 MG TABLET PO SCH ×3 (07:53→20:22)
[2022-04-30] MEDS: QUEtiapine FUMARATE 100 MG TABLET PO SCH ×2 (07:53→20:23)
[2022-04-30] MEDS: HydrALAZINE HCL 50 MG TABLET PO SCH ×3 (07:54→21:34)
[2022-04-30] MEDS: DOCUSATE SODIUM 100 MG CAPSULE PO SCH ×2 (07:54→20:23)
[2022-04-30] MEDS: FAMOTIDINE 20 MG TABLET PO SCH ×2 (07:54→20:23)
[2022-04-30] MEDS: PANTOPRAZOLE SODIUM 40 MG DR TABLET PO SCH (07:54)
[2022-04-30] MEDS: DIVALPROEX SODIUM 500 MG ER TABLET PO SCH ×3 (07:54→20:22)
[2022-04-30] MEDS: LISINOPRIL 20 MG TABLET PO SCH (07:54)
[2022-05-01 03:05] VITALS: BP 120/82
[2022-05-01 08:43] VITALS: BP 121/71
[2022-05-01] MEDS: HydrALAZINE HCL 50 MG TABLET PO SCH ×3 (08:56→20:45)
[2022-05-01] MEDS: PANTOPRAZOLE SODIUM 40 MG DR TABLET PO SCH (08:56)
[2022-05-01] MEDS: FAMOTIDINE 20 MG TABLET PO SCH ×2 (08:56→20:45)
[2022-05-01] MEDS: HEPARIN SODIUM,PORCINE 5,000 UNITS/ML VIAL SQ SCH ×3 (08:56→23:33)
[2022-05-01] MEDS: CARVEDILOL 6.25 MG TABLET PO SCH ×2 (08:56→20:44)
[2022-05-01] MEDS: QUEtiapine FUMARATE 100 MG TABLET PO SCH ×2 (08:56→20:44)
[2022-05-01] MEDS: QUEtiapine FUMARATE 25 MG TABLET PO SCH ×3 (08:56→20:44)
[2022-05-01] MEDS: DOCUSATE SODIUM 100 MG CAPSULE PO SCH ×2 (08:56→20:45)
[2022-05-01] MEDS: DIVALPROEX SODIUM 500 MG ER TABLET PO SCH ×3 (08:56→20:45)
[2022-05-01] MEDS: LISINOPRIL 20 MG TABLET PO SCH (08:57)
[2022-05-01 16:38] VITALS: BP 118/70
[2022-05-01 20:00] VITALS: BP 120/70
[2022-05-02 05:04] VITALS: BP 116/74
[2022-05-02] MEDS: HEPARIN SODIUM,PORCINE 5,000 UNITS/ML VIAL SQ SCH ×3 (08:01→23:24)
[2022-05-02] MEDS: PANTOPRAZOLE SODIUM 40 MG DR TABLET PO SCH (08:02)
[2022-05-02] MEDS: QUEtiapine FUMARATE 25 MG TABLET PO SCH ×3 (08:02→20:23)
[2022-05-02] MEDS: FAMOTIDINE 20 MG TABLET PO SCH ×2 (08:02→20:23)
[2022-05-02] MEDS: HydrALAZINE HCL 50 MG TABLET PO SCH ×3 (08:02→20:23)
[2022-05-02] MEDS: DOCUSATE SODIUM 100 MG CAPSULE PO SCH ×2 (08:02→20:23)
[2022-05-02] MEDS: QUEtiapine FUMARATE 100 MG TABLET PO SCH ×2 (08:03→20:23)
[2022-05-02] MEDS: DIVALPROEX SODIUM 500 MG ER TABLET PO SCH ×4 (08:03→21:26)
[2022-05-02] MEDS: LISINOPRIL 20 MG TABLET PO SCH (08:03)
[2022-05-02] MEDS: CARVEDILOL 6.25 MG TABLET PO SCH ×2 (08:04→20:23)
[2022-05-02] MEDS: CloNIDine 0.3 MG/24 HOUR PATCH TD SCH (08:09)
[2022-05-02 08:12] VITALS: BP 152/86
[2022-05-02 20:10] VITALS: BP 113/79
[2022-05-03 04:41] VITALS: BP 132/71
[2022-05-03 07:00] VITALS: BP 133/75
[2022-05-03] MEDS: HEPARIN SODIUM,PORCINE 5,000 UNITS/ML VIAL SQ SCH ×5 (08:00→20:22)
[2022-05-03] MEDS: DOCUSATE SODIUM 100 MG CAPSULE PO SCH ×3 (09:00→20:21)
[2022-05-03] MEDS: LISINOPRIL 20 MG TABLET PO SCH (09:16)
[2022-05-03] MEDS: QUEtiapine FUMARATE 25 MG TABLET PO SCH ×3 (09:16→20:21)
[2022-05-03] MEDS: QUEtiapine FUMARATE 100 MG TABLET PO SCH ×2 (09:17→20:21)
[2022-05-03] MEDS: HydrALAZINE HCL 50 MG TABLET PO SCH ×3 (09:17→20:21)
[2022-05-03] MEDS: FAMOTIDINE 20 MG TABLET PO SCH ×2 (09:17→20:21)
[2022-05-03] MEDS: PANTOPRAZOLE SODIUM 40 MG DR TABLET PO SCH (09:17)
[2022-05-03] MEDS: DIVALPROEX SODIUM 500 MG ER TABLET PO SCH ×3 (09:17→20:21)
[2022-05-03] MEDS: CARVEDILOL 6.25 MG TABLET PO SCH ×2 (09:17→20:21)
[2022-05-03 17:25] VITALS: BP 103/83
[2022-05-03 20:21] VITALS: BP 111/59
[2022-05-04 04:45] VITALS: BP 112/62
[2022-05-04 09:00] VITALS: BP 108/76
[2022-05-04] MEDS: QUEtiapine FUMARATE 100 MG TABLET PO SCH ×2 (09:00→20:04)
[2022-05-04] MEDS: FAMOTIDINE 20 MG TABLET PO SCH ×2 (09:00→20:04)
[2022-05-04] MEDS: HEPARIN SODIUM,PORCINE 5,000 UNITS/ML VIAL SQ SCH ×2 (09:00→16:00)
[2022-05-04] MEDS: PANTOPRAZOLE SODIUM 40 MG DR TABLET PO SCH (09:01)
[2022-05-04] MEDS: QUEtiapine FUMARATE 25 MG TABLET PO SCH ×3 (09:01→20:04)
[2022-05-04] MEDS: HydrALAZINE HCL 50 MG TABLET PO SCH ×3 (09:01→20:03)
[2022-05-04] MEDS: CARVEDILOL 6.25 MG TABLET PO SCH ×2 (09:01→20:04)
[2022-05-04] MEDS: LISINOPRIL 20 MG TABLET PO SCH (09:01)
[2022-05-04] MEDS: DOCUSATE SODIUM 100 MG CAPSULE PO SCH ×2 (09:01→20:03)
[2022-05-04] MEDS: DIVALPROEX SODIUM 500 MG ER TABLET PO SCH ×3 (09:52→20:04)
[2022-05-04 16:23] VITALS: BP 114/72
[2022-05-04 20:01] VITALS: BP 124/64
[2022-05-05 04:15] VITALS: BP 132/71
[2022-05-05 07:35] VITALS: BP 118/76
[2022-05-05] MEDS: DOCUSATE SODIUM 100 MG CAPSULE PO SCH ×2 (08:22→20:12)
[2022-05-05] MEDS: QUEtiapine FUMARATE 25 MG TABLET PO SCH ×3 (08:22→20:13)
[2022-05-05] MEDS: HydrALAZINE HCL 50 MG TABLET PO SCH ×3 (08:22→20:12)
[2022-05-05] MEDS: FAMOTIDINE 20 MG TABLET PO SCH ×2 (08:22→20:13)
[2022-05-05] MEDS: PANTOPRAZOLE SODIUM 40 MG DR TABLET PO SCH (08:22)
[2022-05-05] MEDS: HEPARIN SODIUM,PORCINE 5,000 UNITS/ML VIAL SQ SCH ×4 (08:23→23:32)
[2022-05-05] MEDS: QUEtiapine FUMARATE 100 MG TABLET PO SCH ×2 (08:23→20:13)
[2022-05-05] MEDS: LISINOPRIL 20 MG TABLET PO SCH (08:23)
[2022-05-05] MEDS: CARVEDILOL 6.25 MG TABLET PO SCH ×2 (08:23→20:12)
[2022-05-05] MEDS: DIVALPROEX SODIUM 500 MG ER TABLET PO SCH ×3 (08:23→20:12)
[2022-05-05 15:42] VITALS: BP 108/65
[2022-05-05 20:00] VITALS: BP 120/75
[2022-05-06] MEDS: FAMOTIDINE 20 MG TABLET PO SCH ×2 (08:10→21:05)
[2022-05-06] MEDS: DIVALPROEX SODIUM 500 MG ER TABLET PO SCH ×3 (08:10→21:05)
[2022-05-06] MEDS: DOCUSATE SODIUM 100 MG CAPSULE PO SCH ×2 (08:10→21:05)
[2022-05-06] MEDS: PANTOPRAZOLE SODIUM 40 MG DR TABLET PO SCH (08:10)
[2022-05-06] MEDS: QUEtiapine FUMARATE 100 MG TABLET PO SCH ×2 (08:10→21:06)
[2022-05-06] MEDS: QUEtiapine FUMARATE 25 MG TABLET PO SCH ×3 (08:10→21:06)
[2022-05-06] MEDS: HEPARIN SODIUM,PORCINE 5,000 UNITS/ML VIAL SQ SCH ×2 (08:11→16:31)
[2022-05-06] MEDS: CARVEDILOL 6.25 MG TABLET PO SCH ×2 (08:15→21:05)
[2022-05-06] MEDS: HydrALAZINE HCL 50 MG TABLET PO SCH ×3 (08:15→21:05)
[2022-05-06 08:16] VITALS: BP 102/64
[2022-05-06] MEDS: LISINOPRIL 20 MG TABLET PO SCH (08:16)
[2022-05-06 15:20] VITALS: BP 118/64
[2022-05-06 20:15] VITALS: BP 111/71
[2022-05-07] MEDS: HEPARIN SODIUM,PORCINE 5,000 UNITS/ML VIAL SQ SCH ×3 (01:11→16:16)
[2022-05-07 05:48] VITALS: BP 108/63
[2022-05-07 07:20] VITALS: BP 110/64
[2022-05-07] MEDS: LISINOPRIL 20 MG TABLET PO SCH (09:00)
[2022-05-07] MEDS: HydrALAZINE HCL 50 MG TABLET PO SCH ×3 (09:00→20:58)
[2022-05-07] MEDS: CARVEDILOL 6.25 MG TABLET PO SCH ×2 (10:19→20:59)
[2022-05-07] MEDS: DIVALPROEX SODIUM 500 MG ER TABLET PO SCH ×3 (10:19→20:57)
[2022-05-07] MEDS: PANTOPRAZOLE SODIUM 40 MG DR TABLET PO SCH (10:19)
[2022-05-07] MEDS: FAMOTIDINE 20 MG TABLET PO SCH ×2 (10:19→20:57)
[2022-05-07] MEDS: QUEtiapine FUMARATE 100 MG TABLET PO SCH ×2 (10:19→20:57)
[2022-05-07] MEDS: DOCUSATE SODIUM 100 MG CAPSULE PO SCH ×2 (10:19→20:57)
[2022-05-07] MEDS: QUEtiapine FUMARATE 25 MG TABLET PO SCH ×3 (10:19→20:56)
[2022-05-07 15:18] VITALS: BP 118/66
[2022-05-07 20:53] VITALS: BP 100/58
[2022-05-08] MEDS: HEPARIN SODIUM,PORCINE 5,000 UNITS/ML VIAL SQ SCH ×4 (00:15→23:11)
[2022-05-08 04:00] VITALS: BP 132/82
[2022-05-08 07:54] LABS: ALANINE AMINOTRANSFERASE 60 U/L (12-78); ALBUMIN 3.7 g/dL (3.4-5.0); ALKALINE PHOSPHATASE 47 U/L (46-116); ANION GAP 7 mmol/L (8-16); ASPARTATE AMINOTRANSFERASE 42 U/L (15-37); BILIRUBIN,TOTAL 0.3 mg/dL (0.1-1.0); CALCIUM, TOTAL 8.6 mg/dL (8.8-10.5); CARBON DIOXIDE 28 mmol/L (22-29); CHLORIDE 101 mmol/L (98-107); CREATININE 1.31 mg/dL (0.60-1.30); GLUCOSE,RANDOM 117 mg/dL (70-110); POTASSIUM 4.3 mmol/L (3.5-5.1); SODIUM SERUM 136 mmol/L (136-145); TOTAL PROTEIN, SERUM 8.3 g/dL (6.4-8.2); UREA NITROGEN, BLOOD 23 mg/dL (7-18)
[2022-05-08 07:56] LABS: GLOMERULAR FILTR. RATE CALC > 60 mL/min (>60)
[2022-05-08 08:23] VITALS: BP 128/78
[2022-05-08 09:38] LABS: BASOPHILS % (AUTO) 0.6 % (0.0-2.0); EOSINOPHILS % (AUTO) 1.9 % (1.0-6.0); HEMATOCRIT 43.3 % (41-53); HEMOGLOBIN 14.4 g/dL (13.5-17.5); LYMPHOCYTES # (AUTO) 2.9 K/uL (1.0-4.8); MEAN CORPUSCULAR HEMOGLOBIN 30.2 pg (26.0-34.0); MEAN CORPUSCULAR HGB CONC 33.2 G/dL (31.0-37.0); MEAN CORPUSCULAR VOLUME 91 fL (80-100); MONOCYTES # (AUTO) 0.8 K/uL (0.1-1.0); NEUTROPHILS % (AUTO) 34.5 % (40.0-70.0); PLATELET COUNT (AUTO) 206 K/uL (150-450); RED BLOOD CELL COUNT(AUTO) 4.77 MIL/uL (4.50-5.90); RED CELL DISTRIBUTION WIDTH 14.3 % (11.5-14.5)
[2022-05-08] MEDS: PANTOPRAZOLE SODIUM 40 MG DR TABLET PO SCH (10:00)
[2022-05-08] MEDS: CARVEDILOL 6.25 MG TABLET PO SCH ×2 (10:00→21:18)
[2022-05-08] MEDS: LISINOPRIL 20 MG TABLET PO SCH (10:00)
[2022-05-08] MEDS: DOCUSATE SODIUM 100 MG CAPSULE PO SCH ×2 (10:00→21:17)
[2022-05-08] MEDS: QUEtiapine FUMARATE 25 MG TABLET PO SCH ×3 (10:01→21:17)
[2022-05-08] MEDS: HydrALAZINE HCL 50 MG TABLET PO SCH ×3 (10:01→21:18)
[2022-05-08] MEDS: QUEtiapine FUMARATE 100 MG TABLET PO SCH ×2 (10:01→21:18)
[2022-05-08] MEDS: DIVALPROEX SODIUM 500 MG ER TABLET PO SCH ×3 (10:01→21:18)
[2022-05-08] MEDS: FAMOTIDINE 20 MG TABLET PO SCH ×2 (10:01→21:17)
[2022-05-08 16:16] VITALS: BP 115/72
[2022-05-08 20:09] VITALS: BP 110/56
[2022-05-09 04:00] VITALS: BP 104/51
[2022-05-09] MEDS: HEPARIN SODIUM,PORCINE 5,000 UNITS/ML VIAL SQ SCH ×3 (08:03→23:12)
[2022-05-09] MEDS: CARVEDILOL 6.25 MG TABLET PO SCH ×2 (08:05→22:33)
[2022-05-09] MEDS: LISINOPRIL 20 MG TABLET PO SCH (08:05)
[2022-05-09] MEDS: QUEtiapine FUMARATE 25 MG TABLET PO SCH ×3 (08:05→22:33)
[2022-05-09] MEDS: DOCUSATE SODIUM 100 MG CAPSULE PO SCH ×2 (08:05→22:34)
[2022-05-09] MEDS: HydrALAZINE HCL 50 MG TABLET PO SCH ×3 (08:06→22:33)
[2022-05-09] MEDS: QUEtiapine FUMARATE 100 MG TABLET PO SCH ×2 (08:06→22:33)
[2022-05-09] MEDS: DIVALPROEX SODIUM 500 MG ER TABLET PO SCH ×3 (08:06→22:33)
[2022-05-09] MEDS: PANTOPRAZOLE SODIUM 40 MG DR TABLET PO SCH (08:06)
[2022-05-09] MEDS: FAMOTIDINE 20 MG TABLET PO SCH ×2 (08:07→22:34)
[2022-05-09] MEDS: CloNIDine 0.3 MG/24 HOUR PATCH TD SCH (08:10)
[2022-05-09 08:35] VITALS: BP 117/50
[2022-05-09 20:00] VITALS: BP 104/69
[2022-05-10 05:00] VITALS: BP 102/72
[2022-05-10 08:23] VITALS: BP 105/76
[2022-05-10] MEDS: HEPARIN SODIUM,PORCINE 5,000 UNITS/ML VIAL SQ SCH ×3 (09:21→23:37)
[2022-05-10] MEDS: DOCUSATE SODIUM 100 MG CAPSULE PO SCH ×3 (09:22→21:08)
[2022-05-10] MEDS: CARVEDILOL 6.25 MG TABLET PO SCH ×2 (09:22→21:00)
[2022-05-10] MEDS: DIVALPROEX SODIUM 500 MG ER TABLET PO SCH ×4 (09:22→21:08)
[2022-05-10] MEDS: FAMOTIDINE 20 MG TABLET PO SCH ×3 (09:23→21:08)
[2022-05-10] MEDS: HydrALAZINE HCL 50 MG TABLET PO SCH ×3 (10:32→21:00)
[2022-05-10] MEDS: LISINOPRIL 20 MG TABLET PO SCH (10:33)
[2022-05-10] MEDS: QUEtiapine FUMARATE 100 MG TABLET PO SCH ×3 (10:33→21:08)
[2022-05-10] MEDS: QUEtiapine FUMARATE 25 MG TABLET PO SCH ×4 (10:33→21:08)
[2022-05-10] MEDS: PANTOPRAZOLE SODIUM 40 MG DR TABLET PO SCH (11:22)
[2022-05-10 16:24] VITALS: BP 103/61
[2022-05-10] MEDS: ACETAMINOPHEN 325 MG TABLET PO PRN (21:08)
[2022-05-10 21:14] VITALS: BP 103/59
[2022-05-11 05:08] VITALS: BP 114/70
[2022-05-11 07:14] VITALS: BP 110/72
[2022-05-11] MEDS: HEPARIN SODIUM,PORCINE 5,000 UNITS/ML VIAL SQ SCH ×4 (08:00→23:48)
[2022-05-11] MEDS: QUEtiapine FUMARATE 100 MG TABLET PO SCH ×2 (08:20→20:19)
[2022-05-11] MEDS: QUEtiapine FUMARATE 25 MG TABLET PO SCH ×3 (08:20→20:20)
[2022-05-11] MEDS: PANTOPRAZOLE SODIUM 40 MG DR TABLET PO SCH (08:20)
[2022-05-11] MEDS: DIVALPROEX SODIUM 500 MG ER TABLET PO SCH ×3 (08:20→20:18)
[2022-05-11] MEDS: DOCUSATE SODIUM 100 MG CAPSULE PO SCH ×2 (08:20→20:19)
[2022-05-11] MEDS: FAMOTIDINE 20 MG TABLET PO SCH ×2 (08:20→20:18)
[2022-05-11] MEDS: LISINOPRIL 20 MG TABLET PO SCH (08:21)
[2022-05-11] MEDS: HydrALAZINE HCL 50 MG TABLET PO SCH ×3 (08:21→20:20)
[2022-05-11] MEDS: CARVEDILOL 6.25 MG TABLET PO SCH ×2 (08:21→20:21)
[2022-05-11 15:04] VITALS: BP 118/74
[2022-05-11 20:14] VITALS: BP 104/59
[2022-05-12 04:39] VITALS: BP 140/85
[2022-05-12 07:31] VITALS: BP 132/78
[2022-05-12] MEDS: FAMOTIDINE 20 MG TABLET PO SCH ×2 (08:39→20:24)
[2022-05-12] MEDS: LISINOPRIL 20 MG TABLET PO SCH (08:39)
[2022-05-12] MEDS: DOCUSATE SODIUM 100 MG CAPSULE PO SCH ×2 (08:40→20:24)
[2022-05-12] MEDS: CARVEDILOL 6.25 MG TABLET PO SCH ×2 (08:40→20:32)
[2022-05-12] MEDS: QUEtiapine FUMARATE 100 MG TABLET PO SCH ×2 (08:40→20:24)
[2022-05-12] MEDS: PANTOPRAZOLE SODIUM 40 MG DR TABLET PO SCH (08:40)
[2022-05-12] MEDS: QUEtiapine FUMARATE 25 MG TABLET PO SCH ×3 (08:40→20:24)
[2022-05-12] MEDS: DIVALPROEX SODIUM 500 MG ER TABLET PO SCH ×3 (08:40→20:24)
[2022-05-12] MEDS: HydrALAZINE HCL 50 MG TABLET PO SCH ×3 (08:40→20:32)
[2022-05-12] MEDS: HEPARIN SODIUM,PORCINE 5,000 UNITS/ML VIAL SQ SCH ×3 (08:41→23:10)
[2022-05-12 15:08] VITALS: BP 118/74
[2022-05-12 20:15] VITALS: BP 104/61
[2022-05-13 04:40] VITALS: BP 112/69
[2022-05-13 07:30] VITALS: BP 117/69
[2022-05-13] MEDS: LISINOPRIL 20 MG TABLET PO SCH (08:29)
[2022-05-13] MEDS: DIVALPROEX SODIUM 500 MG ER TABLET PO SCH ×3 (08:29→23:02)
[2022-05-13] MEDS: CARVEDILOL 6.25 MG TABLET PO SCH ×2 (08:29→21:00)
[2022-05-13] MEDS: PANTOPRAZOLE SODIUM 40 MG DR TABLET PO SCH (08:29)
[2022-05-13] MEDS: FAMOTIDINE 20 MG TABLET PO SCH ×2 (08:29→23:01)
[2022-05-13] MEDS: HEPARIN SODIUM,PORCINE 5,000 UNITS/ML VIAL SQ SCH ×4 (08:30→23:03)
[2022-05-13] MEDS: DOCUSATE SODIUM 100 MG CAPSULE PO SCH ×2 (08:30→23:01)
[2022-05-13] MEDS: HydrALAZINE HCL 50 MG TABLET PO SCH ×3 (08:30→21:00)
[2022-05-13] MEDS: QUEtiapine FUMARATE 25 MG TABLET PO SCH ×3 (08:30→23:02)
[2022-05-13] MEDS: QUEtiapine FUMARATE 100 MG TABLET PO SCH ×2 (08:30→23:02)
[2022-05-13 18:00] VITALS: BP 112/66
[2022-05-13 20:30] VITALS: BP 116/64
[2022-05-13 23:03] VITALS: BP 106/66
[2022-05-14 05:00] VITALS: BP 118/52
[2022-05-14 07:15] VITALS: BP 127/89
[2022-05-14] MEDS: FAMOTIDINE 20 MG TABLET PO SCH ×2 (08:40→20:14)
[2022-05-14] MEDS: HEPARIN SODIUM,PORCINE 5,000 UNITS/ML VIAL SQ SCH ×3 (08:40→23:26)
[2022-05-14] MEDS: LISINOPRIL 20 MG TABLET PO SCH (08:40)
[2022-05-14] MEDS: DOCUSATE SODIUM 100 MG CAPSULE PO SCH ×2 (08:40→20:14)
[2022-05-14] MEDS: HydrALAZINE HCL 50 MG TABLET PO SCH ×3 (08:40→20:14)
[2022-05-14] MEDS: DIVALPROEX SODIUM 500 MG ER TABLET PO SCH ×3 (08:40→20:15)
[2022-05-14] MEDS: PANTOPRAZOLE SODIUM 40 MG DR TABLET PO SCH (08:40)
[2022-05-14] MEDS: QUEtiapine FUMARATE 100 MG TABLET PO SCH ×2 (08:40→20:15)
[2022-05-14] MEDS: CARVEDILOL 6.25 MG TABLET PO SCH ×2 (08:40→20:14)
[2022-05-14] MEDS: QUEtiapine FUMARATE 25 MG TABLET PO SCH ×3 (08:40→20:15)
[2022-05-14 18:18] VITALS: BP 143/77
[2022-05-14 23:40] VITALS: BP 113/58
[2022-05-15 06:01] VITALS: BP 125/76
[2022-05-15 08:00] VITALS: BP 115/66
[2022-05-15] MEDS: CARVEDILOL 6.25 MG TABLET PO SCH ×2 (09:29→20:21)
[2022-05-15] MEDS: QUEtiapine FUMARATE 100 MG TABLET PO SCH ×2 (09:29→20:20)
[2022-05-15] MEDS: QUEtiapine FUMARATE 25 MG TABLET PO SCH ×3 (09:29→20:21)
[2022-05-15] MEDS: HydrALAZINE HCL 50 MG TABLET PO SCH ×3 (09:29→20:20)
[2022-05-15] MEDS: DIVALPROEX SODIUM 500 MG ER TABLET PO SCH ×3 (09:29→20:20)
[2022-05-15] MEDS: PANTOPRAZOLE SODIUM 40 MG DR TABLET PO SCH (09:29)
[2022-05-15] MEDS: DOCUSATE SODIUM 100 MG CAPSULE PO SCH ×2 (09:29→20:20)
[2022-05-15] MEDS: FAMOTIDINE 20 MG TABLET PO SCH ×2 (09:29→20:21)
[2022-05-15] MEDS: LISINOPRIL 20 MG TABLET PO SCH (09:38)
[2022-05-15] MEDS: HEPARIN SODIUM,PORCINE 5,000 UNITS/ML VIAL SQ SCH ×3 (09:38→23:31)
[2022-05-15 16:00] VITALS: BP 120/70
[2022-05-15 20:20] VITALS: BP 102/54
[2022-05-16 04:51] VITALS: BP 137/83
[2022-05-16 08:28] VITALS: BP 132/70
[2022-05-16] MEDS: HydrALAZINE HCL 50 MG TABLET PO SCH ×4 (08:46→20:28)
[2022-05-16] MEDS: FAMOTIDINE 20 MG TABLET PO SCH ×2 (08:46→20:29)
[2022-05-16] MEDS: DOCUSATE SODIUM 100 MG CAPSULE PO SCH ×2 (08:46→20:29)
[2022-05-16] MEDS: CARVEDILOL 6.25 MG TABLET PO SCH ×2 (08:46→20:28)
[2022-05-16] MEDS: PANTOPRAZOLE SODIUM 40 MG DR TABLET PO SCH (08:46)
[2022-05-16] MEDS: QUEtiapine FUMARATE 100 MG TABLET PO SCH ×2 (08:47→20:29)
[2022-05-16] MEDS: QUEtiapine FUMARATE 25 MG TABLET PO SCH ×4 (08:47→20:29)
[2022-05-16] MEDS: DIVALPROEX SODIUM 500 MG ER TABLET PO SCH ×4 (08:47→20:28)
[2022-05-16] MEDS: HEPARIN SODIUM,PORCINE 5,000 UNITS/ML VIAL SQ SCH ×4 (08:47→23:31)
[2022-05-16] MEDS: LISINOPRIL 20 MG TABLET PO SCH (08:47)
[2022-05-16] MEDS: CloNIDine 0.3 MG/24 HOUR PATCH TD SCH (08:48)
[2022-05-16 16:54] VITALS: BP 127/55
[2022-05-16 20:29] VITALS: BP 134/79
[2022-05-17 05:31] VITALS: BP 132/80
[2022-05-17 07:00] VITALS: BP 121/81
[2022-05-17] MEDS: PANTOPRAZOLE SODIUM 40 MG DR TABLET PO SCH (08:53)
[2022-05-17] MEDS: QUEtiapine FUMARATE 100 MG TABLET PO SCH ×2 (08:53→21:02)
[2022-05-17] MEDS: QUEtiapine FUMARATE 25 MG TABLET PO SCH ×3 (08:53→21:03)
[2022-05-17] MEDS: DIVALPROEX SODIUM 500 MG ER TABLET PO SCH ×3 (08:53→21:03)
[2022-05-17] MEDS: FAMOTIDINE 20 MG TABLET PO SCH ×2 (08:53→21:02)
[2022-05-17] MEDS: HydrALAZINE HCL 50 MG TABLET PO SCH ×3 (08:53→21:00)
[2022-05-17] MEDS: CARVEDILOL 6.25 MG TABLET PO SCH ×2 (08:53→21:00)
[2022-05-17] MEDS: LISINOPRIL 20 MG TABLET PO SCH (08:53)
[2022-05-17] MEDS: HEPARIN SODIUM,PORCINE 5,000 UNITS/ML VIAL SQ SCH ×2 (08:54→16:10)
[2022-05-17] MEDS: DOCUSATE SODIUM 100 MG CAPSULE PO SCH ×2 (08:54→21:03)
[2022-05-17] MEDS: MAGNESIUM HYDROXIDE SUSPENSION 30 ML UDCUP PO PRN (08:54)
[2022-05-17 16:06] VITALS: BP 106/69
[2022-05-17 20:07] VITALS: BP 101/67
[2022-05-18 06:21] VITALS: BP 102/68
[2022-05-18] MEDS: HydrALAZINE HCL 50 MG TABLET PO SCH ×3 (09:00→20:44)
[2022-05-18] MEDS: QUEtiapine FUMARATE 100 MG TABLET PO SCH ×2 (09:00→20:44)
[2022-05-18] MEDS: DOCUSATE SODIUM 100 MG CAPSULE PO SCH ×2 (09:00→20:44)
[2022-05-18] MEDS: DIVALPROEX SODIUM 500 MG ER TABLET PO SCH ×3 (09:00→20:45)
[2022-05-18] MEDS: PANTOPRAZOLE SODIUM 40 MG DR TABLET PO SCH (09:00)
[2022-05-18] MEDS: FAMOTIDINE 20 MG TABLET PO SCH ×2 (09:00→20:45)
[2022-05-18] MEDS: LISINOPRIL 20 MG TABLET PO SCH (09:01)
[2022-05-18] MEDS: QUEtiapine FUMARATE 25 MG TABLET PO SCH ×3 (09:01→20:44)
[2022-05-18] MEDS: CARVEDILOL 6.25 MG TABLET PO SCH ×2 (09:01→20:45)
[2022-05-18] MEDS: HEPARIN SODIUM,PORCINE 5,000 UNITS/ML VIAL SQ SCH ×3 (09:02→16:30)
[2022-05-18 16:38] VITALS: BP 113/66
[2022-05-18 20:44] VITALS: BP 114/57
[2022-05-19 04:29] VITALS: BP 103/64
[2022-05-19] MEDS: HEPARIN SODIUM,PORCINE 5,000 UNITS/ML VIAL SQ SCH ×4 (08:00→23:42)
[2022-05-19] MEDS: QUEtiapine FUMARATE 25 MG TABLET PO SCH ×3 (08:01→20:36)
[2022-05-19] MEDS: FAMOTIDINE 20 MG TABLET PO SCH ×2 (08:01→20:35)
[2022-05-19] MEDS: DIVALPROEX SODIUM 500 MG ER TABLET PO SCH ×3 (08:01→20:35)
[2022-05-19] MEDS: PANTOPRAZOLE SODIUM 40 MG DR TABLET PO SCH (08:01)
[2022-05-19] MEDS: HydrALAZINE HCL 50 MG TABLET PO SCH ×4 (08:01→20:35)
[2022-05-19] MEDS: DOCUSATE SODIUM 100 MG CAPSULE PO SCH ×2 (08:01→20:35)
[2022-05-19] MEDS: CARVEDILOL 6.25 MG TABLET PO SCH ×3 (08:01→20:35)
[2022-05-19] MEDS: QUEtiapine FUMARATE 100 MG TABLET PO SCH ×2 (08:01→20:35)
[2022-05-19] MEDS: LISINOPRIL 20 MG TABLET PO SCH ×2 (08:01→09:00)
[2022-05-19 08:05] VITALS: BP 90/49
[2022-05-19 13:41] VITALS: BP 104/56
[2022-05-19 15:06] VITALS: BP 112/66
[2022-05-19 20:15] VITALS: BP 119/69
[2022-05-20 03:18] VITALS: BP 101/65
[2022-05-20 07:37] VITALS: BP 111/75
[2022-05-20] MEDS: PANTOPRAZOLE SODIUM 40 MG DR TABLET PO SCH (08:15)
[2022-05-20] MEDS: QUEtiapine FUMARATE 25 MG TABLET PO SCH ×3 (08:15→21:05)
[2022-05-20] MEDS: DIVALPROEX SODIUM 500 MG ER TABLET PO SCH ×3 (08:15→21:05)
[2022-05-20] MEDS: HydrALAZINE HCL 50 MG TABLET PO SCH ×3 (08:15→21:05)
[2022-05-20] MEDS: FAMOTIDINE 20 MG TABLET PO SCH ×2 (08:15→21:05)
[2022-05-20] MEDS: QUEtiapine FUMARATE 100 MG TABLET PO SCH ×2 (08:15→21:05)
[2022-05-20] MEDS: CARVEDILOL 6.25 MG TABLET PO SCH ×2 (08:15→21:12)
[2022-05-20] MEDS: LISINOPRIL 20 MG TABLET PO SCH (08:15)
[2022-05-20] MEDS: DOCUSATE SODIUM 100 MG CAPSULE PO SCH ×2 (08:15→21:05)
[2022-05-20] MEDS: HEPARIN SODIUM,PORCINE 5,000 UNITS/ML VIAL SQ SCH ×3 (08:16→23:41)
[2022-05-20 15:44] VITALS: BP 116/61
[2022-05-20 20:48] VITALS: BP 115/75
[2022-05-21 05:06] VITALS: BP 102/56
[2022-05-21 08:20] VITALS: BP 110/57
[2022-05-21] MEDS: FAMOTIDINE 20 MG TABLET PO SCH ×2 (08:25→20:16)
[2022-05-21] MEDS: PANTOPRAZOLE SODIUM 40 MG DR TABLET PO SCH (08:25)
[2022-05-21] MEDS: QUEtiapine FUMARATE 100 MG TABLET PO SCH ×2 (08:26→20:16)
[2022-05-21] MEDS: DIVALPROEX SODIUM 500 MG ER TABLET PO SCH ×3 (08:26→20:16)
[2022-05-21] MEDS: HEPARIN SODIUM,PORCINE 5,000 UNITS/ML VIAL SQ SCH ×3 (08:26→23:22)
[2022-05-21] MEDS: DOCUSATE SODIUM 100 MG CAPSULE PO SCH ×2 (08:26→20:16)
[2022-05-21] MEDS: QUEtiapine FUMARATE 25 MG TABLET PO SCH ×3 (08:26→20:16)
[2022-05-21] MEDS: CARVEDILOL 6.25 MG TABLET PO SCH ×2 (08:26→20:16)
[2022-05-21] MEDS: LISINOPRIL 20 MG TABLET PO SCH (08:32)
[2022-05-21] MEDS: HydrALAZINE HCL 50 MG TABLET PO SCH ×3 (08:32→20:16)
[2022-05-21 16:00] VITALS: BP 104/54
[2022-05-21 20:15] VITALS: BP 119/67
[2022-05-22 05:00] VITALS: BP 110/65
[2022-05-22 07:17] VITALS: BP 114/68
[2022-05-22] MEDS: QUEtiapine FUMARATE 25 MG TABLET PO SCH ×3 (08:15→20:45)
[2022-05-22] MEDS: CARVEDILOL 6.25 MG TABLET PO SCH ×2 (08:15→20:58)
[2022-05-22] MEDS: HEPARIN SODIUM,PORCINE 5,000 UNITS/ML VIAL SQ SCH ×3 (08:15→23:57)
[2022-05-22] MEDS: QUEtiapine FUMARATE 100 MG TABLET PO SCH ×2 (08:15→20:45)
[2022-05-22] MEDS: FAMOTIDINE 20 MG TABLET PO SCH ×2 (08:16→20:45)
[2022-05-22] MEDS: DOCUSATE SODIUM 100 MG CAPSULE PO SCH ×2 (08:16→20:45)
[2022-05-22] MEDS: LISINOPRIL 20 MG TABLET PO SCH (08:16)
[2022-05-22] MEDS: HydrALAZINE HCL 50 MG TABLET PO SCH ×3 (08:16→20:58)
[2022-05-22] MEDS: PANTOPRAZOLE SODIUM 40 MG DR TABLET PO SCH (08:16)
[2022-05-22] MEDS: DIVALPROEX SODIUM 500 MG ER TABLET PO SCH ×3 (08:29→20:45)
[2022-05-22 15:18] VITALS: BP 108/72
[2022-05-22 19:30] VITALS: BP_SYST 81; BP_SYST 91; BP_DIAS 64
[2022-05-23 05:30] VITALS: BP 102/64
[2022-05-23 08:15] VITALS: BP 128/69
[2022-05-23] MEDS: DOCUSATE SODIUM 100 MG CAPSULE PO SCH ×2 (08:20→21:24)
[2022-05-23] MEDS: QUEtiapine FUMARATE 100 MG TABLET PO SCH ×2 (08:20→21:24)
[2022-05-23] MEDS: CloNIDine 0.3 MG/24 HOUR PATCH TD SCH (08:20)
[2022-05-23] MEDS: DIVALPROEX SODIUM 500 MG ER TABLET PO SCH ×3 (08:20→21:24)
[2022-05-23] MEDS: HEPARIN SODIUM,PORCINE 5,000 UNITS/ML VIAL SQ SCH ×2 (08:20→15:45)
[2022-05-23] MEDS: QUEtiapine FUMARATE 25 MG TABLET PO SCH ×3 (08:21→21:24)
[2022-05-23] MEDS: PANTOPRAZOLE SODIUM 40 MG DR TABLET PO SCH (08:21)
[2022-05-23] MEDS: HydrALAZINE HCL 50 MG TABLET PO SCH ×3 (08:21→21:00)
[2022-05-23] MEDS: FAMOTIDINE 20 MG TABLET PO SCH ×2 (08:21→21:24)
[2022-05-23] MEDS: CARVEDILOL 6.25 MG TABLET PO SCH ×2 (08:21→21:00)
[2022-05-23] MEDS: LISINOPRIL 20 MG TABLET PO SCH (09:00)
[2022-05-23 16:18] VITALS: BP 104/68
[2022-05-23 20:09] VITALS: BP 100/58
[2022-05-24] MEDS: HEPARIN SODIUM,PORCINE 5,000 UNITS/ML VIAL SQ SCH ×3 (00:25→16:03)
[2022-05-24 03:00] VITALS: BP 104/59
[2022-05-24] MEDS: MAGNESIUM HYDROXIDE SUSPENSION 30 ML UDCUP PO PRN (06:14)
[2022-05-24 07:00] VITALS: BP 131/83
[2022-05-24] MEDS: DOCUSATE SODIUM 100 MG CAPSULE PO SCH ×2 (10:41→21:04)
[2022-05-24] MEDS: LISINOPRIL 20 MG TABLET PO SCH (10:41)
[2022-05-24] MEDS: QUEtiapine FUMARATE 25 MG TABLET PO SCH ×3 (10:41→21:04)
[2022-05-24] MEDS: FAMOTIDINE 20 MG TABLET PO SCH ×2 (10:41→21:04)
[2022-05-24] MEDS: PANTOPRAZOLE SODIUM 40 MG DR TABLET PO SCH (10:41)
[2022-05-24] MEDS: CARVEDILOL 6.25 MG TABLET PO SCH ×2 (10:41→21:04)
[2022-05-24] MEDS: QUEtiapine FUMARATE 100 MG TABLET PO SCH ×2 (10:41→21:04)
[2022-05-24] MEDS: DIVALPROEX SODIUM 500 MG ER TABLET PO SCH ×3 (10:41→21:04)
[2022-05-24] MEDS: HydrALAZINE HCL 50 MG TABLET PO SCH ×3 (10:42→21:04)
[2022-05-24 15:00] VITALS: BP 122/69
[2022-05-24 19:28] VITALS: BP 113/69
[2022-05-25 03:37] VITALS: BP 109/76
[2022-05-25 08:44] VITALS: BP 121/66
[2022-05-25] MEDS: QUEtiapine FUMARATE 25 MG TABLET PO SCH ×3 (10:09→20:07)
[2022-05-25] MEDS: HydrALAZINE HCL 50 MG TABLET PO SCH ×3 (10:09→20:07)
[2022-05-25] MEDS: DOCUSATE SODIUM 100 MG CAPSULE PO SCH ×2 (10:09→20:07)
[2022-05-25] MEDS: PANTOPRAZOLE SODIUM 40 MG DR TABLET PO SCH (10:09)
[2022-05-25] MEDS: QUEtiapine FUMARATE 100 MG TABLET PO SCH ×2 (10:10→20:07)
[2022-05-25] MEDS: CARVEDILOL 6.25 MG TABLET PO SCH ×2 (10:10→20:07)
[2022-05-25] MEDS: HEPARIN SODIUM,PORCINE 5,000 UNITS/ML VIAL SQ SCH ×4 (10:10→23:53)
[2022-05-25] MEDS: LISINOPRIL 20 MG TABLET PO SCH (10:10)
[2022-05-25] MEDS: DIVALPROEX SODIUM 500 MG ER TABLET PO SCH ×3 (10:10→20:07)
[2022-05-25] MEDS: FAMOTIDINE 20 MG TABLET PO SCH ×2 (10:10→20:09)
[2022-05-25 15:41] VITALS: BP 119/79
[2022-05-25 19:29] VITALS: BP 146/87
[2022-05-26 05:46] VITALS: BP 114/76
[2022-05-26 07:19] VITALS: BP 123/70
[2022-05-26] MEDS: HEPARIN SODIUM,PORCINE 5,000 UNITS/ML VIAL SQ SCH ×3 (09:05→23:53)
[2022-05-26] MEDS: FAMOTIDINE 20 MG TABLET PO SCH ×2 (09:05→20:39)
[2022-05-26] MEDS: HydrALAZINE HCL 50 MG TABLET PO SCH ×3 (09:05→20:40)
[2022-05-26] MEDS: QUEtiapine FUMARATE 25 MG TABLET PO SCH ×3 (09:05→20:40)
[2022-05-26] MEDS: PANTOPRAZOLE SODIUM 40 MG DR TABLET PO SCH (09:05)
[2022-05-26] MEDS: QUEtiapine FUMARATE 100 MG TABLET PO SCH ×2 (09:05→20:39)
[2022-05-26] MEDS: CARVEDILOL 6.25 MG TABLET PO SCH ×2 (09:05→20:40)
[2022-05-26] MEDS: DIVALPROEX SODIUM 500 MG ER TABLET PO SCH ×3 (09:05→20:39)
[2022-05-26] MEDS: DOCUSATE SODIUM 100 MG CAPSULE PO SCH ×2 (09:05→20:39)
[2022-05-26] MEDS: LISINOPRIL 20 MG TABLET PO SCH (09:05)
[2022-05-26 15:34] VITALS: BP 125/82
[2022-05-26 19:25] VITALS: BP 126/83
[2022-05-27 05:30] VITALS: BP 116/77
[2022-05-27 09:05] VITALS: BP 117/60
[2022-05-27] MEDS: CARVEDILOL 6.25 MG TABLET PO SCH ×2 (09:32→19:55)
[2022-05-27] MEDS: DOCUSATE SODIUM 100 MG CAPSULE PO SCH ×2 (09:33→19:55)
[2022-05-27] MEDS: PANTOPRAZOLE SODIUM 40 MG DR TABLET PO SCH (09:33)
[2022-05-27] MEDS: LISINOPRIL 20 MG TABLET PO SCH (09:33)
[2022-05-27] MEDS: DIVALPROEX SODIUM 500 MG ER TABLET PO SCH ×3 (09:33→19:55)
[2022-05-27] MEDS: HEPARIN SODIUM,PORCINE 5,000 UNITS/ML VIAL SQ SCH ×3 (09:33→23:41)
[2022-05-27] MEDS: FAMOTIDINE 20 MG TABLET PO SCH ×2 (09:33→19:55)
[2022-05-27] MEDS: QUEtiapine FUMARATE 100 MG TABLET PO SCH ×2 (09:33→19:55)
[2022-05-27] MEDS: QUEtiapine FUMARATE 25 MG TABLET PO SCH ×3 (09:33→19:55)
[2022-05-27] MEDS: HydrALAZINE HCL 50 MG TABLET PO SCH ×3 (09:33→19:55)
[2022-05-27 15:29] VITALS: BP 122/79
[2022-05-27 19:25] VITALS: BP 109/66
[2022-05-28 05:06] VITALS: BP 120/68
[2022-05-28] MEDS: HEPARIN SODIUM,PORCINE 5,000 UNITS/ML VIAL SQ SCH (09:06)
[2022-05-28] MEDS: CARVEDILOL 6.25 MG TABLET PO SCH (09:07)
[2022-05-28] MEDS: DIVALPROEX SODIUM 500 MG ER TABLET PO SCH (09:08)
[2022-05-28] MEDS: DOCUSATE SODIUM 100 MG CAPSULE PO SCH (09:08)
[2022-05-28] MEDS: QUEtiapine FUMARATE 25 MG TABLET PO SCH (09:08)
[2022-05-28] MEDS: QUEtiapine FUMARATE 100 MG TABLET PO SCH (09:08)
[2022-05-28] MEDS: PANTOPRAZOLE SODIUM 40 MG DR TABLET PO SCH (09:09)
[2022-05-28] MEDS: FAMOTIDINE 20 MG TABLET PO SCH (09:09)
[2022-05-28] MEDS: LISINOPRIL 20 MG TABLET PO SCH (09:09)
[2022-05-28] MEDS: HydrALAZINE HCL 50 MG TABLET PO SCH (09:10)
== END 2022-05-28 09:29 | disposition home or self-care (01) | DRG 421 ==
LOC: EMS 21:10 → 6N 03-07 16:44
PROVIDERS: ADMIT Internal Medicine; ATTEND Internal Medicine
PROC: 4A00X4Z Measurement of Central Nervous Electrical Activity, External Approach (ICD-10-PCS; principal; 2022-04-17)
DX: R62.7 Adult failure to thrive (principal); F29 Unspecified psychosis not due to a substance or known physiological condition; G81.91 Hemiplegia, unspecified affecting right dominant side; I10 Essential (primary) hypertension; G51.0 Bell's palsy; Z20.822 Contact with and (suspected) exposure to COVID-19; Z86.73 Personal history of transient ischemic attack (TIA), and cerebral infarction without residual deficits; Z68.32 Body mass index [BMI] 32.0-32.9, adult; Z79.899 Other long term (current) drug therapy; Z87.891 Personal history of nicotine dependence; Z74.01 Bed confinement status
CPT/HCPCS: 70450; 80053; 80164; 82140; 85025; 87081; 92507; 93971; 95816; 97110; 97112; 97116; 97162; 97167; 97530; 97535; 99285; G0480; J1200; J1630; J1644; J2060

== ENCOUNTER 2022-06-10 18:48 | Emergency (ER) | payer OTHER ==
[~2022-06-10] VITALS: Ht 167.6 cm; Wt 91.9 kg
[~2022-06-10 18:48] MED LIST changes: -ACET-2247 PO; -BISA10SU11 PR; -CLON1PAT14 TP; -FAMO20 PO; -LISI-894 PO; -METO50 PO
[2022-06-10 21:37] LABS: COVID AG,FIA SOURCE NASOPHARYNGEAL
[2022-06-10 21:57] LABS: INFLUENZA TYPE A NEGATIVE FOR TYPE A (NEGATIVE); INFLUENZA TYPE B NEGATIVE FOR TYPE B (NEGATIVE)
[2022-06-10] MEDS ORDERED: KETAMINE HCL 50 MG/ML 10 ML VIAL IM ONE (22:15)
[2022-06-10] MEDS ORDERED: MIDAZOLAM HCL 5 MG/ML VIAL IM ONE (22:15)
[2022-06-10] MEDS ORDERED: LIDOCAINE/PF 1% 2 ML VIAL IM ONE (22:15)
[2022-06-10] MEDS ORDERED: CefTRIAXone SODIUM 1 GM/VIAL IM ONE (22:15)
[2022-06-10 23:54] LABS: LACTIC ACID 0.9 mmol/L (0.4-2.0)
[2022-06-10 23:58] LABS: BASOPHILS % (AUTO) 0.5 % (0.0-2.0); EOSINOPHILS % (AUTO) 0.1 % (1.0-6.0); HEMATOCRIT 43.1 % (41-53); HEMOGLOBIN 14.7 g/dL (13.5-17.5); LYMPHOCYTES # (AUTO) 1.5 K/uL (1.0-4.8); LYMPHOCYTES % (AUTO) 27.3 % (22.0-44.0); MEAN CORPUSCULAR HEMOGLOBIN 30.8 pg (26.0-34.0); MEAN CORPUSCULAR HGB CONC 34.2 G/dL (31.0-37.0); MEAN CORPUSCULAR VOLUME 90 fL (80-100); MONOCYTES # (AUTO) 1.3 K/uL (0.1-1.0); MONOCYTES % (AUTO) 23.1 % (2.0-9.0); NEUTROPHILS # (AUTO) 2.7 K/uL (1.8-7.7); PLATELET COUNT (AUTO) 137 K/uL (150-450); RED BLOOD CELL COUNT(AUTO) 4.78 MIL/uL (4.50-5.90); RED CELL DISTRIBUTION WIDTH 14.6 % (11.5-14.5)
[2022-06-11 00:09] LABS: CALCIUM, TOTAL 8.3 mg/dL (8.8-10.5); CREATININE 1.4 mg/dL (0.60-1.30); POTASSIUM 4.2 mmol/L (3.5-5.1)
[2022-06-11 00:15] LABS: ALBUMIN 3.9 g/dL (3.4-5.0); BILIRUBIN,TOTAL 0.2 mg/dL (0.1-1.0); TOTAL PROTEIN, SERUM 8.3 g/dL (6.4-8.2)
[2022-06-11 00:44] LABS: APPEARANCE,URINE CLEAR (CLEAR); BILIRUBIN,URINE NEGATIVE (NEGATIVE); GLUCOSE, URINE (UA) NEGATIVE (NEGATIVE); KETONES,URINE TRACE mg/dL (NEGATIVE); LEUKOCYTE ESTERASE ,URINE NEGATIVE (NEGATIVE); NITRATE,URINE NEGATIVE (NEGATIVE); OCCULT BLOOD,URINE NEGATIVE (NEGATIVE); PH,URINE 5.5 (5.0-8.0); PROTEIN,URINE TRACE mg/dL (NEGATIVE); SPECIFIC GRAVITIY, URINE 1.022 (1.003-1.030); UROBILINOGEN,URINE <=1.0 mg/dL (<=1.0)
[2022-06-11 01:19] LABS: BACTERIA,URINE None Seen /HPF (None Seen); RBC,URINE None Seen /HPF (0-2); SQUAMOUS EPITHELIAL CELL,UR Few /LPF (None Seen); WBC,URINE None Seen /HPF (0-5)
[2022-06-11 01:20] LABS: HYALINE CASTS, URINE 0-2 /LPF (None Seen)
[2022-06-11 11:40] VITALS: BP 109/66
== END 2022-06-11 12:40 ==
LOC: EMS 18:49
DX: U07.1 COVID-19 (principal); N39.0 Urinary tract infection, site not specified; J06.9 Acute upper respiratory infection, unspecified; I63.9 Cerebral infarction, unspecified; I10 Essential (primary) hypertension; M62.81 Muscle weakness (generalized); F17.210 Nicotine dependence, cigarettes, uncomplicated; F15.10 Other stimulant abuse, uncomplicated; I62.9 Nontraumatic intracranial hemorrhage, unspecified; Z20.822 Contact with and (suspected) exposure to COVID-19
CPT/HCPCS: 99285; 71045; 87426; 80053; 81001; 83605; 83690; 83880; 84484; 85025; 87040; 87804; 36415; 93005; 51701; 96372; J0696; J3490 ×2; J2250

== ENCOUNTER 2022-07-07 17:11 | Emergency (ER) | payer OTHER ==
[~2022-07-07] VITALS: Ht 177.8 cm; Wt 81.0 kg
[2022-07-07] MEDS ORDERED: LISI-658 PO (18:45)
[2022-07-07 20:06] LABS: BASOPHILS % (AUTO) 0.7 % (0.0-2.0); EOSINOPHILS % (AUTO) 0.4 % (1.0-6.0); HEMATOCRIT 42.2 % (41-53); HEMOGLOBIN 14.4 g/dL (13.5-17.5); LYMPHOCYTES # (AUTO) 2.2 K/uL (1.0-4.8); LYMPHOCYTES % (AUTO) 25.5 % (22.0-44.0); MEAN CORPUSCULAR HEMOGLOBIN 30.3 pg (26.0-34.0); MEAN CORPUSCULAR HGB CONC 34.2 G/dL (31.0-37.0); MEAN CORPUSCULAR VOLUME 89 fL (80-100); MONOCYTES # (AUTO) 1.1 K/uL (0.1-1.0); MONOCYTES % (AUTO) 12.9 % (2.0-9.0); NEUTROPHILS # (AUTO) 5.3 K/uL (1.8-7.7); NEUTROPHILS % (AUTO) 60.5 % (40.0-70.0); PLATELET COUNT (AUTO) 176 K/uL (150-450); RED BLOOD CELL COUNT(AUTO) 4.76 MIL/uL (4.50-5.90); RED CELL DISTRIBUTION WIDTH 14.3 % (11.5-14.5)
[2022-07-07 20:12] LABS: COVID AG,FIA SOURCE NASOPHARYNGEAL
[2022-07-07 20:13] LABS: APPEARANCE,URINE CLEAR (CLEAR); BILIRUBIN,URINE NEGATIVE (NEGATIVE); GLUCOSE, URINE (UA) NEGATIVE (NEGATIVE); KETONES,URINE TRACE mg/dL (NEGATIVE); LEUKOCYTE ESTERASE ,URINE NEGATIVE (NEGATIVE); NITRATE,URINE NEGATIVE (NEGATIVE); OCCULT BLOOD,URINE NEGATIVE (NEGATIVE); PROTEIN,URINE TRACE mg/dL (NEGATIVE); SPECIFIC GRAVITIY, URINE 1.018 (1.003-1.030)
[2022-07-07 20:14] LABS: ANION GAP 9 mmol/L (8-16); CALCIUM, TOTAL 8.7 mg/dL (8.8-10.5); CARBON DIOXIDE 27 mmol/L (22-29); CHLORIDE 107 mmol/L (98-107); CREATININE 1.16 mg/dL (0.60-1.30); GLOMERULAR FILTR. RATE CALC > 60 mL/min (>60); GLUCOSE,RANDOM 92 mg/dL (70-110); POTASSIUM 4.1 mmol/L (3.5-5.1); SODIUM SERUM 143 mmol/L (136-145); UREA NITROGEN, BLOOD 9 mg/dL (7-18)
[2022-07-07 20:22] LABS: RBC,URINE 0-2 /HPF (0-2); WBC,URINE 0-2 /HPF (0-5)
[2022-07-07 20:23] LABS: BACTERIA,URINE None Seen /HPF (None Seen); SQUAMOUS EPITHELIAL CELL,UR Few /LPF (None Seen)
[2022-07-07 20:37] LABS: INFLUENZA TYPE A NEGATIVE FOR TYPE A (NEGATIVE); INFLUENZA TYPE B NEGATIVE FOR TYPE B (NEGATIVE)
[2022-07-08] MEDS ORDERED: HydrALAZINE HCL 25 MG TABLET PO ONE (15:00)
[2022-07-08] MEDS ORDERED: LISINOPRIL 10 MG TABLET PO ONE (15:00)
[2022-07-08] MEDS ORDERED: CARVEDILOL 6.25 MG TABLET PO ONE (15:00)
[2022-07-08 15:07] VITALS: BP 154/77
== END 2022-07-08 15:17 | disposition home or self-care (01) ==
LOC: EMS 17:12
DX: R50.9 Fever, unspecified (principal); M62.81 Muscle weakness (generalized); E78.00 Pure hypercholesterolemia, unspecified; I10 Essential (primary) hypertension; I63.9 Cerebral infarction, unspecified; F17.210 Nicotine dependence, cigarettes, uncomplicated; Z20.822 Contact with and (suspected) exposure to COVID-19
CPT/HCPCS: 71045; 80048; 81001; 85025; 87804; 99285; 36415-L1; 36415-TC